=== PATIENT | male | born 1935 | race Caucasian/White ===

== ENCOUNTER → 2016-10-18 | Outpatient (CLI) | payer MEDICARE ==
[~2016-10-18] MED LIST: ACET-1757 PO; ACID1TAB3 PO; AMOX1TAB12 PO; AMOX1TAB64 PO; AMPI3VIA30 IV; ASPI-621 PO; ATOR20TA9 PO; CARV12.543 PO; CEFD300C2 PO; CEPH-376 PO; ESOM40VI IV; FURO-92 PO; ISOS30TA8 PO; LACT1POW9 PO; LEVO112T2 PO; LEVO500T33 PO; LEVO50CA2 PO; LEVO750P7 IV; LISI-167 PO; LORA-446 IVPush; LORA-446 PO; MECL12.5 PO; METO50TA82 PO; OXYB5TAB7 PO; OXYC5TAB3 PO; POTA10TA11 PO; POTA10TA12 PO; RIVA10TA PO; SENN-31 PO; SULF1TAB24 PO; TEMA15CA PO; TERA5CAP3 PO; TRIA15CR3 TD; VIT1TABL34 PO; WARF2.5T PO; WARF2.5T73 PO; WARF5TAB PO
== END | disposition home or self-care (01) ==
LOC: WOUND 10:00
PROVIDERS: ATTEND Podiatrist Foot & Ankle Surgery
DX: I87.313 Chronic venous hypertension (idiopathic) with ulcer of bilateral lower extremity (principal); L97.222 Non-pressure chronic ulcer of left calf with fat layer exposed; L97.212 Non-pressure chronic ulcer of right calf with fat layer exposed; I11.0 Hypertensive heart disease with heart failure; I50.9 Heart failure, unspecified; I25.2 Old myocardial infarction; I48.91 Unspecified atrial fibrillation; E78.5 Hyperlipidemia, unspecified; E03.9 Hypothyroidism, unspecified; I25.10 Atherosclerotic heart disease of native coronary artery without angina pectoris; Z72.89 Other problems related to lifestyle
CPT/HCPCS: 29581; 97597

== ENCOUNTER 2017-01-13 14:41 | Emergency (ER) | payer MEDICARE ==
[~2017-01-13] VITALS: Ht 180.3 cm; Wt 140.0 kg
[~2017-01-13 14:41] MED LIST changes: -CEFD300C2 PO; +CEFD300C37 PO
[2017-01-13] MEDS ORDERED: TAMS-11 PO (14:58)
[2017-01-13] MEDS ORDERED: SODIUM CHLORIDE 0.9% 1,000 ML IV ONE (15:07)
[2017-01-13] MEDS ORDERED: FAMOTIDINE 20 MG/2 ML IVP ONE (15:30)
[2017-01-13] MEDS ORDERED: MAALOX/HYOSCYAMINE/LIDOCAINE 45 ML BOTTLE PO ONE (15:30)
[2017-01-13] MEDS ORDERED: ONDANSETRON 2MG/ML, 2ML IVPush ONE (15:30)
[2017-01-13] MEDS ORDERED: FAMOTIDINE 20 MG/2 ML ONE (15:31)
[2017-01-13] MEDS ORDERED: ONDANSETRON 2MG/ML, 2ML ONE (15:31)
[2017-01-13] MEDS ORDERED: MAALOX/HYOSCYAMINE/LIDOCAINE 45 ML BOTTLE ONE (15:31)
[2017-01-13 16:17] LABS: ASPARTATE AMINO TRANSFERASE 26 U/L (15-37); BLOOD UREA NITROGEN 26 mg/dL (7-18)
[2017-01-13 16:56] LABS: PATH.CAST-FLAG NOT PRESENT; SPERM-FLAG NOT PRESENT; SRC-FLAG NOT PRESENT; XTAL-FLAG NOT PRESENT; YLC-FLAG NOT PRESENT
[2017-01-13 17:10] VITALS: BP 125/66
== END 2017-01-13 17:37 | disposition home or self-care (01) ==
LOC: ED 17:31
DX: R10.84 Generalized abdominal pain (principal); G89.29 Other chronic pain; E78.5 Hyperlipidemia, unspecified; N40.0 Benign prostatic hyperplasia without lower urinary tract symptoms; E03.9 Hypothyroidism, unspecified; I11.0 Hypertensive heart disease with heart failure
CPT/HCPCS: 36415; 74022; 80053; 81001; 83690; 85025; 85610; 93005; 96361; 96374; 96375; 99285; J2405; J7030; S0028

== ENCOUNTER 2017-02-27 02:07 | Inpatient (IN) | payer MEDICARE, OTHER ==
[~2017-02-27] VITALS: Ht 180.3 cm; Wt 142.3 kg
[~2017-02-27 02:07] MED LIST changes: +TAMS-11 PO
[2017-02-27] MEDS ORDERED: SODIUM CHLORIDE FLUSH 10ML SYR IVF ONE (03:00)
[2017-02-27] MEDS ORDERED: SODIUM CHLORIDE 0.9% 1,000ML IVBOLUS ONE (03:00)
[2017-02-27] MEDS ORDERED: CLINDAMYCIN PMX 900MG/50ML 50 ML IV ONE (03:00)
[2017-02-27] MEDS ORDERED: CLINDAMYCIN PMX 900MG/50ML 50 ML ONE (03:05)
[2017-02-27] MEDS ORDERED: ATOR10TA9 PO (03:23)
[2017-02-27] MEDS ORDERED: LISI-167 PO (03:23)
[2017-02-27] MEDS ORDERED: HYDR25TA11 PO (03:24)
[2017-02-27 03:32] LABS: BLOOD UREA NITROGEN 19 mg/dL (7-18)
[2017-02-27] MEDS ORDERED: FUROSEMIDE 40 MG/4 ML ONE (04:08)
[2017-02-27] MEDS ORDERED: HYDROcodone/APAP 5/325 TABLET ONE (04:17)
[2017-02-27] MEDS ORDERED: FUROSEMIDE 40 MG/4 ML IV ONE (04:30)
[2017-02-27] MEDS ORDERED: HYDROcodone/APAP 5/325 TABLET PO ONE (04:30)
[2017-02-27] MEDS ORDERED: METHOCARBAMOL 750 MG TABLET PO PRN (05:30)
[2017-02-27] MEDS ORDERED: ONDANSETRON 2MG/ML, 2ML IVPush PRN (05:30)
[2017-02-27] MEDS ORDERED: POLYETHYLENE GLYCOL 17 GM PACKET PO PRN (05:30)
[2017-02-27] MEDS ORDERED: DOCUSATE 100 MG CAPSULE PO PRN (05:30)
[2017-02-27] MEDS ORDERED: ACETAMINOPHEN 325 MG TABLET PO PRN (05:30)
[2017-02-27] MEDS ORDERED: BISACODYL 10 MG SUPP PR PRN (05:30)
[2017-02-27] MEDS ORDERED: morphine SULFATE 10 MG/ML, 1ML IVPush PRN (05:30)
[2017-02-27 07:16] VITALS: BP 119/73
[2017-02-27 08:22] VITALS: BP 156/87
[2017-02-27] MEDS: OXYcodone IR 5MG TABLET PO PRN ×3 (08:42→21:51)
[2017-02-27] MEDS: CEFTAROLINE 600 MG in SODIUM CHLORIDE 0.9% 100 ML IV SCH ×2 (08:53→21:37)
[2017-02-27] MEDS: TAMSULOSIN 0.4 MG CAP.ER.24H PO SCH (08:54)
[2017-02-27] MEDS: LEVOTHYROXINE 112 MCG TABLET PO SCH (08:54)
[2017-02-27] MEDS: METOPROLOL TARTRATE 50 MG TABLET PO SCH ×2 (08:54→18:23)
[2017-02-27] MEDS: POTASSIUM CHLORIDE 20 MEQ TAB.ER.PRT PO SCH ×2 (08:55→21:37)
[2017-02-27] MEDS: LISINOPRIL 10 MG TABLET PO SCH (08:55)
[2017-02-27] MEDS: RIVAROXABAN 20 MG TABLET PO SCH (08:56)
[2017-02-27] MEDS: FUROSEMIDE 40 MG TABLET PO SCH (08:56)
[2017-02-27] MEDS: SODIUM CHLORIDE FLUSH 10ML SYR IVF SCH ×2 (08:59→21:37)
[2017-02-27 15:37] VITALS: BP 132/71
[2017-02-27 19:14] VITALS: BP 116/76
[2017-02-27] MEDS: ATORVASTATIN 10 MG TABLET PO SCH (21:37)
[2017-02-28 02:35] VITALS: BP 110/71
[2017-02-28 05:34] LABS: ASPARTATE AMINO TRANSFERASE 21 U/L (15-37); BLOOD UREA NITROGEN 32 mg/dL (7-18)
[2017-02-28] MEDS: METOPROLOL TARTRATE 50 MG TABLET PO SCH ×2 (05:57→17:48)
[2017-02-28] MEDS: LEVOTHYROXINE 112 MCG TABLET PO SCH (05:58)
[2017-02-28] MEDS: OXYcodone IR 5MG TABLET PO PRN ×3 (05:58→17:45)
[2017-02-28 07:41] VITALS: BP 127/63
[2017-02-28] MEDS: TAMSULOSIN 0.4 MG CAP.ER.24H PO SCH (08:55)
[2017-02-28] MEDS: POTASSIUM CHLORIDE 20 MEQ TAB.ER.PRT PO SCH ×2 (08:55→22:34)
[2017-02-28] MEDS: RIVAROXABAN 20 MG TABLET PO SCH (08:55)
[2017-02-28] MEDS: LISINOPRIL 10 MG TABLET PO SCH (08:55)
[2017-02-28] MEDS: FUROSEMIDE 40 MG TABLET PO SCH (08:56)
[2017-02-28] MEDS: SODIUM CHLORIDE FLUSH 10ML SYR IVF SCH ×2 (08:58→22:34)
[2017-02-28] MEDS: CEFTAROLINE 600 MG in SODIUM CHLORIDE 0.9% 100 ML IV SCH ×2 (09:03→22:34)
[2017-02-28 12:54] VITALS: BP 108/72
[2017-02-28 20:48] VITALS: BP 156/85
[2017-02-28] MEDS: ATORVASTATIN 10 MG TABLET PO SCH (22:34)
[2017-03-01 01:55] VITALS: BP_SYST 164; BP_SYST 165; BP_DIAS 109; BP_DIAS 99
[2017-03-01 05:31] LABS: BLOOD UREA NITROGEN 36 mg/dL (7-18)
[2017-03-01] MEDS: METOPROLOL TARTRATE 50 MG TABLET PO SCH ×2 (05:41→17:20)
[2017-03-01] MEDS: LEVOTHYROXINE 112 MCG TABLET PO SCH (05:41)
[2017-03-01 07:26] VITALS: BP 133/70
[2017-03-01] MEDS: TAMSULOSIN 0.4 MG CAP.ER.24H PO SCH (09:11)
[2017-03-01] MEDS: LISINOPRIL 10 MG TABLET PO SCH (09:11)
[2017-03-01] MEDS: RIVAROXABAN 20 MG TABLET PO SCH (09:11)
[2017-03-01] MEDS: FUROSEMIDE 40 MG TABLET PO SCH (09:11)
[2017-03-01] MEDS: SODIUM CHLORIDE FLUSH 10ML SYR IVF SCH ×2 (09:11→20:52)
[2017-03-01] MEDS: OXYcodone IR 5MG TABLET PO PRN ×2 (09:11→17:20)
[2017-03-01] MEDS: CEFTAROLINE 600 MG in SODIUM CHLORIDE 0.9% 100 ML IV SCH ×2 (09:11→20:52)
[2017-03-01] MEDS: POTASSIUM CHLORIDE 20 MEQ TAB.ER.PRT PO SCH ×2 (09:11→20:52)
[2017-03-01 13:55] VITALS: BP 128/74
[2017-03-01] MEDS ORDERED: METH750T2 PO (15:12)
[2017-03-01] MEDS ORDERED: AMOX1TAB64 PO (15:12)
[2017-03-01 19:21] VITALS: BP_SYST 146; BP_SYST 175; BP_DIAS 74; BP_DIAS 95
[2017-03-01] MEDS: ATORVASTATIN 10 MG TABLET PO SCH (20:52)
[2017-03-02 01:08] VITALS: BP 136/77
[2017-03-02] MEDS: METOPROLOL TARTRATE 50 MG TABLET PO SCH ×2 (06:03→18:21)
[2017-03-02] MEDS: LEVOTHYROXINE 112 MCG TABLET PO SCH (06:03)
[2017-03-02 09:13] VITALS: BP 146/77
[2017-03-02] MEDS: FUROSEMIDE 40 MG TABLET PO SCH (09:37)
[2017-03-02] MEDS: SODIUM CHLORIDE FLUSH 10ML SYR IVF SCH ×2 (09:37→20:59)
[2017-03-02] MEDS: LISINOPRIL 10 MG TABLET PO SCH (09:37)
[2017-03-02] MEDS: CEFTAROLINE 600 MG in SODIUM CHLORIDE 0.9% 100 ML IV SCH ×2 (09:37→20:59)
[2017-03-02] MEDS: POTASSIUM CHLORIDE 20 MEQ TAB.ER.PRT PO SCH ×2 (09:38→20:59)
[2017-03-02] MEDS: RIVAROXABAN 20 MG TABLET PO SCH (09:38)
[2017-03-02] MEDS: TAMSULOSIN 0.4 MG CAP.ER.24H PO SCH (09:38)
[2017-03-02 14:30] VITALS: BP 138/70
[2017-03-02 19:13] VITALS: BP 134/72
[2017-03-02] MEDS: ATORVASTATIN 10 MG TABLET PO SCH (20:59)
[2017-03-03 02:18] VITALS: BP 165/97
[2017-03-03] MEDS: LEVOTHYROXINE 112 MCG TABLET PO SCH (06:27)
[2017-03-03] MEDS: METOPROLOL TARTRATE 50 MG TABLET PO SCH ×2 (06:27→18:20)
[2017-03-03 07:05] VITALS: BP 169/106
[2017-03-03 08:53] LABS: BLOOD UREA NITROGEN 41 mg/dL (7-18)
[2017-03-03 08:56] LABS: ASPARTATE AMINO TRANSFERASE 39 U/L (15-37)
[2017-03-03] MEDS: CEFTAROLINE 600 MG in SODIUM CHLORIDE 0.9% 100 ML IV SCH (09:00)
[2017-03-03] MEDS: SODIUM CHLORIDE FLUSH 10ML SYR IVF SCH ×2 (09:00→20:56)
[2017-03-03] MEDS: LISINOPRIL 10 MG TABLET PO SCH (10:04)
[2017-03-03] MEDS: FUROSEMIDE 40 MG TABLET PO SCH (10:04)
[2017-03-03] MEDS: POTASSIUM CHLORIDE 20 MEQ TAB.ER.PRT PO SCH ×2 (10:04→20:57)
[2017-03-03] MEDS: TAMSULOSIN 0.4 MG CAP.ER.24H PO SCH (10:04)
[2017-03-03] MEDS: RIVAROXABAN 20 MG TABLET PO SCH (10:05)
[2017-03-03] MEDS: AMOXICILLIN/CLAV 875-125MG TABLET PO SCH ×2 (11:14→20:56)
[2017-03-03 13:42] VITALS: BP 146/72
[2017-03-03 18:18] VITALS: BP 125/63
[2017-03-03] MEDS: ATORVASTATIN 10 MG TABLET PO SCH (20:56)
[2017-03-04 01:20] VITALS: BP_SYST 159; BP_SYST 186; BP_DIAS 82; BP_DIAS 92
[2017-03-04 05:30] LABS: ASPARTATE AMINO TRANSFERASE 50 U/L (15-37); BLOOD UREA NITROGEN 37 mg/dL (7-18)
[2017-03-04] MEDS: METOPROLOL TARTRATE 50 MG TABLET PO SCH (06:30)
[2017-03-04] MEDS: LEVOTHYROXINE 112 MCG TABLET PO SCH (06:30)
[2017-03-04 07:30] VITALS: BP 156/99
[2017-03-04] MEDS: RIVAROXABAN 20 MG TABLET PO SCH (10:17)
[2017-03-04] MEDS: TAMSULOSIN 0.4 MG CAP.ER.24H PO SCH (10:17)
[2017-03-04] MEDS: FUROSEMIDE 40 MG TABLET PO SCH (10:17)
[2017-03-04] MEDS: AMOXICILLIN/CLAV 875-125MG TABLET PO SCH (10:17)
[2017-03-04] MEDS: LISINOPRIL 10 MG TABLET PO SCH (10:17)
[2017-03-04] MEDS: POTASSIUM CHLORIDE 20 MEQ TAB.ER.PRT PO SCH (10:17)
[2017-03-04] MEDS: SODIUM CHLORIDE FLUSH 10ML SYR IVF SCH (10:18)
[2017-03-04] MEDS ORDERED: POTA10TA12 PO (12:44)
[2017-03-04 14:30] VITALS: BP 146/64
[2017-03-05] MEDS ORDERED: POTASSIUM CHLORIDE 20 MEQ TAB.ER.PRT PO SCH (09:00)
== END 2017-03-04 15:15 | DRG 291 ==
LOC: ED 03:16 → EDIP 04:01 → 3NE 06:23
PROVIDERS: ATTEND Family Medicine
PROC: 3E0U33Z Introduction of Anti-inflammatory into Joints, Percutaneous Approach (ICD-10-PCS; principal; 2017-03-01)
PROC: 3E0U3BZ Introduction of Anesthetic Agent into Joints, Percutaneous Approach (ICD-10-PCS; 2017-03-01)
DX: I11.0 Hypertensive heart disease with heart failure (principal); N17.0 Acute kidney failure with tubular necrosis; L03.116 Cellulitis of left lower limb; D68.69 Other thrombophilia; L03.115 Cellulitis of right lower limb; L03.119 Cellulitis of unspecified part of limb; E66.2 Morbid (severe) obesity with alveolar hypoventilation; Z68.42 Body mass index [BMI] 45.0-49.9, adult; M17.0 Bilateral primary osteoarthritis of knee; I50.20 Unspecified systolic (congestive) heart failure; M25.462 Effusion, left knee; M25.461 Effusion, right knee; E03.9 Hypothyroidism, unspecified; E78.5 Hyperlipidemia, unspecified; G89.29 Other chronic pain; I25.10 Atherosclerotic heart disease of native coronary artery without angina pectoris; I48.91 Unspecified atrial fibrillation; I87.8 Other specified disorders of veins; N40.0 Benign prostatic hyperplasia without lower urinary tract symptoms; D64.9 Anemia, unspecified; I44.7 Left bundle-branch block, unspecified; R21 Rash and other nonspecific skin eruption; R26.2 Difficulty in walking, not elsewhere classified; Z79.899 Other long term (current) drug therapy
CPT/HCPCS: 36415; 71010; 80048; 80053; 82040; 83880; 85025; 93005; 93970; 96374; J0712; J1940; J7030; Q0177

== ENCOUNTER 2017-03-29 05:56 | Emergency (ER) | payer MEDICARE, MEDICAID ==
[~2017-03-29] VITALS: Ht 180.3 cm; Wt 142.0 kg
[~2017-03-29 05:56] MED LIST changes: +ATOR10TA9 PO; +HYDR25TA11 PO; +METH750T2 PO
[2017-03-29 06:28] LABS: BLOOD UREA NITROGEN 27 mg/dL (7-18)
[2017-03-29] MEDS ORDERED: CEFDINIR 300 MG CAPSULE PO STA (07:47)
[2017-03-29 08:26] VITALS: BP 148/87
== END 2017-03-29 08:28 | disposition home or self-care (01) ==
LOC: ED 06:15
DX: N30.01 Acute cystitis with hematuria (principal); I10 Essential (primary) hypertension; E03.9 Hypothyroidism, unspecified; I48.91 Unspecified atrial fibrillation; I50.9 Heart failure, unspecified
CPT/HCPCS: 36415; 51702; 80048; 81001; 82040; 85025; 87077; 87086; 87186

== ENCOUNTER 2017-09-15 20:37 | Inpatient (IN) | payer MEDICARE, MEDICAID ==
[~2017-09-15] VITALS: Ht 180.3 cm; Wt 153.9 kg
[~2017-09-15 20:37] MED LIST changes: -LEVO500T33 PO; +LEVO500T47 PO
[2017-09-15] MEDS ORDERED: ALBUTEROL/IPRATROPIUM 2.5MG/0.5MG, 3 ML ONE (20:52)
[2017-09-15] MEDS ORDERED: ALBUTEROL/IPRATROPIUM 2.5MG/0.5MG, 3 ML NPPB ONE (21:00)
[2017-09-15] MEDS ORDERED: SODIUM CHLORIDE FLUSH 10ML SYR IVF ONE (21:00)
[2017-09-15] MEDS ORDERED: PLEASE ENTER HEIGHT AND WEIGHT MC SCH (21:00)
[2017-09-15] MEDS ORDERED: METF500T4 PO (21:06)
[2017-09-15 21:12] LABS: BASOPHILS # (AUTO) 0.04 x10^3/uL (0-0.1); BASOPHILS % (AUTO) 1 % (0-1); EOSINOPHILS # (AUTO) 0.29 x10^3/uL (0-0.4); EOSINOPHILS % (AUTO) 4 % (1-7); LYMPHOCYTES # (AUTO) 1.68 x10^3/uL (1-3.4); LYMPHOCYTES % (AUTO) 21 % (22-44); MD NO; MEAN CORPUSCULAR HEMOGLOBIN 28.7 pg (27.5-34.5); MEAN CORPUSCULAR HGB CONC 33.1 g/dL (33.2-36.2); MEAN CORPUSCULAR VOLUME 86.7 fL (81-97); MEAN PLATELET VOLUME 8.9 fL (7.4-10.4); MONOCYTES # (AUTO) 0.76 x10^3/uL (0.2-0.8); MONOCYTES % (AUTO) 9 % (2-9); NEUTROPHILS # (AUTO) 5.46 x10^3/uL (1.8-6.8); NEUTROPHILS % (AUTO) 66 % (42-75); PLATELET COUNT 276 x10^3/uL (130-400); RED BLOOD COUNT 4.63 x10^6/uL (4.38-5.82); RED CELL DISTRIBUTION WIDTH 16.2 % (9.4-14.8)
[2017-09-15 21:22] LABS: INTERNATIONAL NORMALIZED RATIO 1.33 (0.93-1.1); PROTHROMBIN TIME 13.8 Seconds (9.6-11.5)
[2017-09-15 21:23] LABS: ALBUMIN 3.3 g/dL (3.4-5.0); ANION GAP 8 mmol/L (5-15); CALCIUM 8.3 mg/dL (8.5-10.1); CHLORIDE 108 mmol/L (98-107)
[2017-09-15 21:29] LABS: ALANINE AMINOTRANSFERASE 24 U/L (12-78); ALKALINE PHOSPHATASE 126 U/L (45-117); BILIRUBIN,TOTAL 0.4 mg/dL (0.2-1.0); CREATININE 1.19 mg/dL (0.7-1.3); TOTAL PROTEIN 7.4 g/dL (6.4-8.2); TROPONIN I < 0.015 ng/mL (0.000-0.045)
[2017-09-15] MEDS ORDERED: methylPREDNISolone SOD SUCC 125 MG/2 ML ONE (22:26)
[2017-09-15] MEDS ORDERED: methylPREDNISolone SOD SUCC 125 MG/2 ML IVPush ONE (22:30)
[2017-09-15 22:56] LABS: RAPID INFLUENZA A Negative (Negative); RAPID INFLUENZA B Negative (Negative)
[2017-09-16] MEDS ORDERED: TEMAZEPAM 15 MG CAPSULE PO PRN
[2017-09-16] MEDS ORDERED: ONDANSETRON ODT 4 MG PO PRN
[2017-09-16] MEDS ORDERED: DOCUSATE 100 MG CAPSULE PO PRN
[2017-09-16] MEDS ORDERED: POLYETHYLENE GLYCOL 17 GM PACKET PO PRN
[2017-09-16] MEDS ORDERED: ONDANSETRON 2MG/ML, 2ML IVPush PRN
[2017-09-16] MEDS ORDERED: ACETAMINOPHEN 325 MG TABLET PO PRN
[2017-09-16] MEDS ORDERED: GUAIFENESIN/DM 200-20MG, 10ML UDC PO PRN
[2017-09-16 00:31] LABS: TROPONIN I < 0.015 ng/mL (0.000-0.045)
[2017-09-16 01:13] VITALS: BP 146/74
[2017-09-16] MEDS: OXYcodone IR 5MG TABLET PO PRN ×3 (01:55→20:39)
[2017-09-16 02:18] VITALS: BP 146/74
[2017-09-16] MEDS: LEVOTHYROXINE 112 MCG TABLET PO SCH (05:15)
[2017-09-16] MEDS: METOPROLOL TARTRATE 50 MG TABLET PO SCH ×2 (05:16→17:38)
[2017-09-16 06:06] LABS: BASOPHILS # (AUTO) 0.01 x10^3/uL (0-0.1); BASOPHILS % (AUTO) 0 % (0-1); EOSINOPHILS % (AUTO) 0 % (1-7); LYMPHOCYTES # (AUTO) 0.43 x10^3/uL (1-3.4); LYMPHOCYTES % (AUTO) 6 % (22-44); MD NO; MEAN CORPUSCULAR HEMOGLOBIN 28.9 pg (27.5-34.5); MEAN CORPUSCULAR HGB CONC 33.4 g/dL (33.2-36.2); MEAN CORPUSCULAR VOLUME 86.6 fL (81-97); MEAN PLATELET VOLUME 9.2 fL (7.4-10.4); MONOCYTES # (AUTO) 0.07 x10^3/uL (0.2-0.8); MONOCYTES % (AUTO) 1 % (2-9); NEUTROPHILS # (AUTO) 6.97 x10^3/uL (1.8-6.8); NEUTROPHILS % (AUTO) 93 % (42-75); PLATELET COUNT 251 x10^3/uL (130-400); RED BLOOD COUNT 4.57 x10^6/uL (4.38-5.82); RED CELL DISTRIBUTION WIDTH 15.6 % (9.4-14.8)
[2017-09-16 06:24] LABS: ALBUMIN 3.1 g/dL (3.4-5.0); ANION GAP 6 mmol/L (5-15); CALCIUM 8.4 mg/dL (8.5-10.1); CHLORIDE 107 mmol/L (98-107)
[2017-09-16 06:33] LABS: TROPONIN I < 0.015 ng/mL (0.000-0.045)
[2017-09-16 06:34] LABS: ALANINE AMINOTRANSFERASE 23 U/L (12-78); ALKALINE PHOSPHATASE 126 U/L (45-117); BILIRUBIN,TOTAL 0.5 mg/dL (0.2-1.0); CHOLESTEROL, TOTAL 98 mg/dL (140-239); CREATININE 1.26 mg/dL (0.7-1.3); HDL CHOL % 49 % (26-37); HDL CHOLESTEROL (DIRECT) 48 mg/dL (40-60); LDL CHOLESTEROL,CALCULATED 42 mg/dL (54-169); LDL/HDL RATIO 0.9 (0.5-3.0); TOTAL PROTEIN 7.2 g/dL (6.4-8.2); TRIGLYCERIDES 40 mg/dL (50-200); VLDL CHOLESTEROL 8 mg/dL (0-25)
[2017-09-16 06:40] LABS: HEMOGLOBIN A1C 7.4 % (4.2-6.3)
[2017-09-16] MEDS ORDERED: ALBUTEROL SULFATE 2.5 MG/3 ML NPPB SCH (07:00)
[2017-09-16 07:11] VITALS: BP 133/77
[2017-09-16] MEDS: FUROSEMIDE 40 MG/4 ML IV SCH (08:50)
[2017-09-16] MEDS: TAMSULOSIN 0.4 MG CAP.ER.24H PO SCH (08:51)
[2017-09-16] MEDS: POTASSIUM CHLORIDE 20 MEQ TAB.ER.PRT PO SCH (08:51)
[2017-09-16] MEDS: RIVAROXABAN 20 MG TABLET PO SCH (08:51)
[2017-09-16] MEDS ORDERED: methylPREDNISolone SOD SUCC 40 MG/ML IV SCH (09:00)
[2017-09-16] MEDS: INSULIN ASPART 100 UNITS/ML, PEN SQ-INSULIN SCH ×4 (09:05→21:01)
[2017-09-16 13:56] VITALS: BP 149/75
[2017-09-16 18:39] VITALS: BP 135/76
[2017-09-16] MEDS: ATORVASTATIN 10 MG TABLET PO SCH (20:39)
[2017-09-17 03:02] VITALS: BP 124/56
[2017-09-17] MEDS: ASPIRIN 81 MG TABLET CHEW PO SCH (06:34)
[2017-09-17] MEDS: METOPROLOL TARTRATE 50 MG TABLET PO SCH ×2 (06:34→17:03)
[2017-09-17] MEDS: LEVOTHYROXINE 112 MCG TABLET PO SCH (06:34)
[2017-09-17 08:04] VITALS: BP 125/69
[2017-09-17] MEDS: INSULIN ASPART 100 UNITS/ML, PEN SQ-INSULIN SCH ×4 (08:04→20:24)
[2017-09-17] MEDS: RIVAROXABAN 20 MG TABLET PO SCH (08:05)
[2017-09-17] MEDS: POTASSIUM CHLORIDE 20 MEQ TAB.ER.PRT PO SCH (08:05)
[2017-09-17] MEDS: TAMSULOSIN 0.4 MG CAP.ER.24H PO SCH (08:05)
[2017-09-17] MEDS: FUROSEMIDE 40 MG/4 ML IV SCH (08:05)
[2017-09-17 15:12] VITALS: BP 144/85
[2017-09-17] MEDS: OXYcodone IR 5MG TABLET PO PRN ×2 (17:03→21:20)
[2017-09-17 20:12] VITALS: BP 120/74
[2017-09-17] MEDS: ATORVASTATIN 10 MG TABLET PO SCH (20:23)
[2017-09-18 03:36] VITALS: BP 129/72
[2017-09-18] MEDS: METOPROLOL TARTRATE 50 MG TABLET PO SCH ×2 (06:11→17:27)
[2017-09-18] MEDS: LEVOTHYROXINE 112 MCG TABLET PO SCH (06:11)
[2017-09-18] MEDS: ASPIRIN 81 MG TABLET CHEW PO SCH (06:11)
[2017-09-18 06:13] LABS: ANION GAP 7 mmol/L (5-15); CALCIUM 8.3 mg/dL (8.5-10.1); CHLORIDE 105 mmol/L (98-107)
[2017-09-18 06:14] LABS: CREATININE 1.14 mg/dL (0.7-1.3)
[2017-09-18 06:35] VITALS: BP 115/71
[2017-09-18] MEDS: INSULIN ASPART 100 UNITS/ML, PEN SQ-INSULIN SCH ×3 (07:00→17:27)
[2017-09-18] MEDS: TAMSULOSIN 0.4 MG CAP.ER.24H PO SCH (09:43)
[2017-09-18] MEDS: RIVAROXABAN 20 MG TABLET PO SCH (09:43)
[2017-09-18] MEDS: FUROSEMIDE 40 MG/4 ML IV SCH (09:43)
[2017-09-18] MEDS: POTASSIUM CHLORIDE 20 MEQ TAB.ER.PRT PO SCH (09:43)
[2017-09-18] MEDS: OXYcodone IR 5MG TABLET PO PRN ×2 (09:52→14:50)
[2017-09-18 12:30] VITALS: BP 130/80
[2017-09-18] MEDS ORDERED: PRED10TA PO (14:33)
== END 2017-09-18 17:29 | DRG 291 ==
LOC: ED 22:07 → EDIP 23:19 → 5SO 09-16 01:09
PROVIDERS: ADMIT Internal Medicine; ATTEND Internal Medicine
DX: I13.0 Hypertensive heart and chronic kidney disease with heart failure and stage 1 through stage 4 chronic kidney disease, or unspecified chronic kidney disease (principal); I50.31 Acute diastolic (congestive) heart failure; J96.21 Acute and chronic respiratory failure with hypoxia; D68.69 Other thrombophilia; I27.20 Pulmonary hypertension, unspecified; E66.01 Morbid (severe) obesity due to excess calories; I48.2 Chronic atrial fibrillation; N18.3 Chronic kidney disease, stage 3 (moderate); Z68.42 Body mass index [BMI] 45.0-49.9, adult; I25.10 Atherosclerotic heart disease of native coronary artery without angina pectoris; E11.9 Type 2 diabetes mellitus without complications; Z79.01 Long term (current) use of anticoagulants; E03.9 Hypothyroidism, unspecified; E78.5 Hyperlipidemia, unspecified; G47.33 Obstructive sleep apnea (adult) (pediatric); I44.7 Left bundle-branch block, unspecified; I87.8 Other specified disorders of veins; J98.01 Acute bronchospasm; M17.0 Bilateral primary osteoarthritis of knee; N40.0 Benign prostatic hyperplasia without lower urinary tract symptoms; Z91.19 Patient's noncompliance with other medical treatment and regimen; J40 Bronchitis, not specified as acute or chronic
CPT/HCPCS: 36415; 70498; 71045; 80048; 80053; 80061; 82962; 83036; 83735; 83880; 84100; 84443; 84484; 85025; 85379; 85610; 85730; 87400; 93005; 93970; 94640; 96374; C8929; J1815; J1940; J7613; J7620; Q9967; J2920; J2930; J7512

== ENCOUNTER 2018-04-01 12:23 | Inpatient (IN) | payer MEDICARE, MEDICAID ==
[~2018-04-01] VITALS: Ht 177.8 cm; Wt 145.8 kg
[~2018-04-01 12:23] MED LIST changes: +LEVO750T26 PO; +METF500T5 PO; +PRED10TA PO
[2018-04-01] MEDS ORDERED: AMPICILLIN/SULBACTAM 3 GM in SODIUM CHLORIDE 0.9% 100 ML IVPB ONE (13:30)
[2018-04-01] MEDS ORDERED: SODIUM CHLORIDE FLUSH 10ML SYR IVF ONE (13:30)
[2018-04-01] MEDS ORDERED: VANCOMYCIN 2,000 MG in SODIUM CHLORIDE 0.9% 500 ML IV ONE (13:30)
[2018-04-01] MEDS ORDERED: VANCOMYCIN PER PHARMACY MC ONE (13:30)
[2018-04-01 13:50] LABS: BASOPHILS # (AUTO) 0.03 x10^3/uL (0-0.1); BASOPHILS % (AUTO) 0 % (0-1); EOSINOPHILS # (AUTO) 0.16 x10^3/uL (0-0.4); EOSINOPHILS % (AUTO) 2 % (1-7); LYMPHOCYTES % (AUTO) 14 % (22-44); MD NO; MEAN CORPUSCULAR HEMOGLOBIN 28.6 pg (27.5-34.5); MEAN CORPUSCULAR HGB CONC 33.5 g/dL (33.2-36.2); MEAN CORPUSCULAR VOLUME 85.3 fL (81-97); MEAN PLATELET VOLUME 8.8 fL (7.4-10.4); MONOCYTES # (AUTO) 0.94 x10^3/uL (0.2-0.8); MONOCYTES % (AUTO) 11 % (2-9); NEUTROPHILS # (AUTO) 6.01 x10^3/uL (1.8-6.8); NEUTROPHILS % (AUTO) 72 % (42-75); PLATELET COUNT 283 x10^3/uL (130-400); RED BLOOD COUNT 4.88 x10^6/uL (4.38-5.82); RED CELL DISTRIBUTION WIDTH 16.8 % (9.4-14.8)
[2018-04-01 13:59] LABS: ANION GAP 8 mmol/L (5-15); CALCIUM 8.8 mg/dL (8.5-10.1); CHLORIDE 103 mmol/L (98-107); CREATININE 1.32 mg/dL (0.7-1.3)
[2018-04-01 14:00] LABS: ALBUMIN 2.9 g/dL (3.4-5.0)
[2018-04-01] MEDS ORDERED: TAMS0.4C2 PO (14:36)
[2018-04-01] MEDS ORDERED: LEVO112T4 PO (14:36)
[2018-04-01] MEDS ORDERED: METF500T5 PO (14:36)
[2018-04-01] MEDS ORDERED: METO-99 PO (14:36)
[2018-04-01] MEDS ORDERED: POTA20TA14 PO (14:36)
[2018-04-01] MEDS ORDERED: VIT1TABL34 PO (14:36)
[2018-04-01] MEDS ORDERED: RIVA20TA PO (14:36)
[2018-04-01 15:26] VITALS: BP 136/80
[2018-04-01 15:45] LABS: HEMOGLOBIN A1C 6.4 % (4.2-6.3)
[2018-04-01] MEDS ORDERED: ONDANSETRON 2MG/ML, 2ML IVPush PRN (16:00)
[2018-04-01] MEDS ORDERED: FUROSEMIDE 20 MG/2 ML IV ONE (16:00)
[2018-04-01 16:22] LABS: HCT (SEDRATE) 41.6 % (39.2-51.8)
[2018-04-01] MEDS: POTASSIUM CHLORIDE 10 MEQ TABLET.ER PO SCH (17:13)
[2018-04-01] MEDS: metFORMIN 500 MG TABLET PO SCH (17:13)
[2018-04-01 17:14] LABS: CULTURE INDICATED? YES; MICROSCOPIC INDICATED
[2018-04-01] MEDS ORDERED: CEFAZOLIN 1,000 MG IM SCH (20:00)
[2018-04-01 20:49] VITALS: BP 144/87
[2018-04-01] MEDS: TAMSULOSIN 0.4 MG CAP.ER.24H PO SCH (21:15)
[2018-04-01] MEDS: ACETAMINOPHEN 325 MG TABLET PO PRN (21:15)
[2018-04-01] MEDS: ATORVASTATIN 10 MG TABLET PO SCH (21:15)
[2018-04-01] MEDS: METOPROLOL TARTRATE 100 MG TABLET PO SCH (21:15)
[2018-04-01] MEDS: RIVAROXABAN 20 MG TABLET PO SCH (21:18)
[2018-04-01] MEDS: CEFAZOLIN PMX 1GM/50ML 50 ML IV SCH (21:37)
[2018-04-02 01:19] VITALS: BP 123/77
[2018-04-02 05:46] LABS: BASOPHILS # (AUTO) 0.03 x10^3/uL (0-0.1); BASOPHILS % (AUTO) 0 % (0-1); EOSINOPHILS # (AUTO) 0.22 x10^3/uL (0-0.4); EOSINOPHILS % (AUTO) 3 % (1-7); LYMPHOCYTES # (AUTO) 0.89 x10^3/uL (1-3.4); LYMPHOCYTES % (AUTO) 12 % (22-44); MD NO; MEAN CORPUSCULAR HEMOGLOBIN 28.4 pg (27.5-34.5); MEAN CORPUSCULAR HGB CONC 33.3 g/dL (33.2-36.2); MEAN CORPUSCULAR VOLUME 85.2 fL (81-97); MEAN PLATELET VOLUME 8.8 fL (7.4-10.4); MONOCYTES # (AUTO) 0.73 x10^3/uL (0.2-0.8); MONOCYTES % (AUTO) 10 % (2-9); NEUTROPHILS # (AUTO) 5.77 x10^3/uL (1.8-6.8); NEUTROPHILS % (AUTO) 76 % (42-75); PLATELET COUNT 272 x10^3/uL (130-400); RED BLOOD COUNT 4.69 x10^6/uL (4.38-5.82); RED CELL DISTRIBUTION WIDTH 17.1 % (9.4-14.8)
[2018-04-02] MEDS: CEFAZOLIN PMX 1GM/50ML 50 ML IV SCH ×3 (06:06→21:56)
[2018-04-02 06:18] LABS: ALBUMIN 2.7 g/dL (3.4-5.0); ANION GAP 9 mmol/L (5-15); CALCIUM 8.5 mg/dL (8.5-10.1); CHLORIDE 104 mmol/L (98-107)
[2018-04-02 06:20] LABS: CREATININE 1.23 mg/dL (0.7-1.3)
[2018-04-02] MEDS: ACETAMINOPHEN 325 MG TABLET PO PRN (06:57)
[2018-04-02 08:00] VITALS: BP 122/65
[2018-04-02] MEDS ORDERED: VANCOMYCIN PER PHARMACY MC PRN (08:00)
[2018-04-02] MEDS: POTASSIUM CHLORIDE 10 MEQ TABLET.ER PO SCH ×2 (08:01→17:05)
[2018-04-02] MEDS: MULTIVITAMIN 1 TABLET PO SCH (08:02)
[2018-04-02] MEDS: FUROSEMIDE 40 MG/4 ML IV SCH (08:02)
[2018-04-02] MEDS: LEVOTHYROXINE 112 MCG TABLET PO SCH (08:02)
[2018-04-02] MEDS: METOPROLOL TARTRATE 100 MG TABLET PO SCH ×2 (08:02→20:31)
[2018-04-02] MEDS ORDERED: PHARMACOKINETIC MONITORING MC PRN (08:30)
[2018-04-02] MEDS ORDERED: PHARMACOKINETIC CONSULTATION MC ONE (08:30)
[2018-04-02] MEDS: OXYcodone IR 5MG TABLET PO PRN ×2 (10:00→19:16)
[2018-04-02] MEDS ORDERED: VANCOMYCIN 2,500 MG in SODIUM CHLORIDE 0.9% 500 ML IV ONE (10:00)
[2018-04-02 12:44] VITALS: BP 105/63
[2018-04-02] MEDS: metFORMIN 500 MG TABLET PO SCH (17:05)
[2018-04-02 19:49] VITALS: BP 113/78
[2018-04-02] MEDS: ATORVASTATIN 10 MG TABLET PO SCH (20:31)
[2018-04-02] MEDS: RIVAROXABAN 20 MG TABLET PO SCH (20:31)
[2018-04-02] MEDS: TAMSULOSIN 0.4 MG CAP.ER.24H PO SCH (20:31)
[2018-04-03 02:25] VITALS: BP 116/62
[2018-04-03] MEDS: CEFAZOLIN PMX 1GM/50ML 50 ML IV SCH ×3 (05:36→21:54)
[2018-04-03] MEDS: OXYcodone IR 5MG TABLET PO PRN ×3 (06:17→21:52)
[2018-04-03 07:17] VITALS: BP 114/70
[2018-04-03] MEDS: LEVOTHYROXINE 112 MCG TABLET PO SCH (09:48)
[2018-04-03] MEDS: MULTIVITAMIN 1 TABLET PO SCH (09:48)
[2018-04-03] MEDS: METOPROLOL TARTRATE 100 MG TABLET PO SCH ×2 (09:48→21:52)
[2018-04-03] MEDS: FUROSEMIDE 40 MG/4 ML IV SCH (09:48)
[2018-04-03] MEDS: POTASSIUM CHLORIDE 10 MEQ TABLET.ER PO SCH ×2 (09:49→17:57)
[2018-04-03] MEDS: VANCOMYCIN 2,000 MG in SODIUM CHLORIDE 0.9% 500 ML IV SCH (10:26)
[2018-04-03 13:45] VITALS: BP 101/64
[2018-04-03] MEDS: metFORMIN 500 MG TABLET PO SCH (17:57)
[2018-04-03 21:22] VITALS: BP 121/76
[2018-04-03] MEDS: RIVAROXABAN 20 MG TABLET PO SCH (21:52)
[2018-04-03] MEDS: ATORVASTATIN 10 MG TABLET PO SCH (21:52)
[2018-04-03] MEDS: TAMSULOSIN 0.4 MG CAP.ER.24H PO SCH (21:52)
[2018-04-04 04:53] VITALS: BP 148/98
[2018-04-04 05:13] VITALS: BP 124/67
[2018-04-04 06:16] LABS: ANION GAP 7 mmol/L (5-15); CALCIUM 8.4 mg/dL (8.5-10.1); CHLORIDE 107 mmol/L (98-107)
[2018-04-04 06:17] LABS: CREATININE 1.09 mg/dL (0.7-1.3)
[2018-04-04] MEDS: CEFAZOLIN PMX 1GM/50ML 50 ML IV SCH ×3 (06:17→15:13)
[2018-04-04 07:32] VITALS: BP 111/63
[2018-04-04] MEDS: POTASSIUM CHLORIDE 10 MEQ TABLET.ER PO SCH ×2 (08:06→17:59)
[2018-04-04] MEDS: METOPROLOL TARTRATE 100 MG TABLET PO SCH ×2 (08:06→20:36)
[2018-04-04] MEDS: MULTIVITAMIN 1 TABLET PO SCH (08:06)
[2018-04-04] MEDS: FUROSEMIDE 40 MG TABLET PO SCH (08:06)
[2018-04-04] MEDS: LEVOTHYROXINE 112 MCG TABLET PO SCH (08:06)
[2018-04-04] MEDS: VANCOMYCIN 2,000 MG in SODIUM CHLORIDE 0.9% 500 ML IV SCH (11:43)
[2018-04-04 12:45] VITALS: BP 110/66
[2018-04-04] MEDS: OXYcodone IR 5MG TABLET PO PRN (17:58)
[2018-04-04] MEDS: metFORMIN 500 MG TABLET PO SCH (17:59)
[2018-04-04 19:33] VITALS: BP 112/67
[2018-04-04] MEDS: RIVAROXABAN 20 MG TABLET PO SCH (20:36)
[2018-04-04] MEDS: ATORVASTATIN 10 MG TABLET PO SCH (20:36)
[2018-04-04] MEDS: TAMSULOSIN 0.4 MG CAP.ER.24H PO SCH (20:36)
[2018-04-04] MEDS: AMPICILLIN/SULBACTAM 3 GM in SODIUM CHLORIDE 0.9% 100 ML IV SCH (22:10)
[2018-04-04 23:51] LABS: CLOSTRIDIUM DIFFICILE ANTIGEN NEGATIVE; CLOSTRIDIUM DIFFICILE TOXIN NEGATIVE (Negative)
[2018-04-05 01:48] VITALS: BP 140/82
[2018-04-05] MEDS: AMPICILLIN/SULBACTAM 3 GM in SODIUM CHLORIDE 0.9% 100 ML IV SCH ×4 (05:04→22:37)
[2018-04-05 07:50] VITALS: BP 158/84
[2018-04-05] MEDS: METOPROLOL TARTRATE 100 MG TABLET PO SCH ×2 (08:15→20:43)
[2018-04-05] MEDS: FUROSEMIDE 40 MG TABLET PO SCH (08:15)
[2018-04-05] MEDS: LEVOTHYROXINE 112 MCG TABLET PO SCH (08:15)
[2018-04-05] MEDS: POTASSIUM CHLORIDE 10 MEQ TABLET.ER PO SCH ×2 (08:18→17:16)
[2018-04-05] MEDS: MULTIVITAMIN 1 TABLET PO SCH (08:18)
[2018-04-05] MEDS: OXYcodone IR 5MG TABLET PO PRN ×2 (08:40→17:16)
[2018-04-05] MEDS: LOPERAMIDE 1 MG/5 ML, 10ML UDC PO SCH (13:56)
[2018-04-05 14:24] VITALS: BP 125/83
[2018-04-05] MEDS: metFORMIN 500 MG TABLET PO SCH (17:16)
[2018-04-05 19:24] VITALS: BP 140/82
[2018-04-05] MEDS: RIVAROXABAN 20 MG TABLET PO SCH (20:42)
[2018-04-05] MEDS: TAMSULOSIN 0.4 MG CAP.ER.24H PO SCH (20:42)
[2018-04-05] MEDS: ATORVASTATIN 10 MG TABLET PO SCH (20:43)
[2018-04-06 01:47] VITALS: BP 141/83
[2018-04-06] MEDS: AMPICILLIN/SULBACTAM 3 GM in SODIUM CHLORIDE 0.9% 100 ML IV SCH ×4 (04:57→21:36)
[2018-04-06 05:24] LABS: CALCIUM 8.6 mg/dL (8.5-10.1); CHLORIDE 109 mmol/L (98-107)
[2018-04-06 05:28] LABS: ALBUMIN 2.8 g/dL (3.4-5.0); ANION GAP 7 mmol/L (5-15)
[2018-04-06 07:59] VITALS: BP 142/83
[2018-04-06] MEDS: MULTIVITAMIN 1 TABLET PO SCH (08:15)
[2018-04-06] MEDS: METOPROLOL TARTRATE 100 MG TABLET PO SCH ×2 (08:15→21:36)
[2018-04-06] MEDS: POTASSIUM CHLORIDE 10 MEQ TABLET.ER PO SCH ×2 (08:15→17:05)
[2018-04-06] MEDS: LEVOTHYROXINE 112 MCG TABLET PO SCH (08:15)
[2018-04-06] MEDS: FUROSEMIDE 40 MG TABLET PO SCH (08:16)
[2018-04-06] MEDS: LOPERAMIDE 1 MG/5 ML, 10ML UDC PO SCH (08:17)
[2018-04-06 15:52] VITALS: BP 114/80
[2018-04-06] MEDS: metFORMIN 500 MG TABLET PO SCH (17:05)
[2018-04-06 18:37] VITALS: BP_SYST 106; BP_SYST 142; BP_DIAS 63; BP_DIAS 87
[2018-04-06] MEDS: ATORVASTATIN 10 MG TABLET PO SCH (21:36)
[2018-04-06] MEDS: TAMSULOSIN 0.4 MG CAP.ER.24H PO SCH (21:36)
[2018-04-06] MEDS: RIVAROXABAN 20 MG TABLET PO SCH (21:36)
[2018-04-07] MEDS: OXYcodone IR 5MG TABLET PO PRN ×2 (01:16→22:35)
[2018-04-07 02:08] VITALS: BP 105/67
[2018-04-07] MEDS: AMPICILLIN/SULBACTAM 3 GM in SODIUM CHLORIDE 0.9% 100 ML IV SCH ×4 (04:37→22:29)
[2018-04-07 05:31] LABS: BASOPHILS # (AUTO) 0.03 x10^3/uL (0-0.1); BASOPHILS % (AUTO) 0 % (0-1); EOSINOPHILS # (AUTO) 0.41 x10^3/uL (0-0.4); EOSINOPHILS % (AUTO) 5 % (1-7); LYMPHOCYTES # (AUTO) 1.44 x10^3/uL (1-3.4); LYMPHOCYTES % (AUTO) 19 % (22-44); MD NO; MEAN CORPUSCULAR HEMOGLOBIN 28.4 pg (27.5-34.5); MEAN CORPUSCULAR VOLUME 85.9 fL (81-97); MEAN PLATELET VOLUME 8.4 fL (7.4-10.4); MONOCYTES # (AUTO) 0.73 x10^3/uL (0.2-0.8); MONOCYTES % (AUTO) 10 % (2-9); NEUTROPHILS # (AUTO) 5.05 x10^3/uL (1.8-6.8); NEUTROPHILS % (AUTO) 66 % (42-75); PLATELET COUNT 314 x10^3/uL (130-400); RED BLOOD COUNT 4.51 x10^6/uL (4.38-5.82); RED CELL DISTRIBUTION WIDTH 16.8 % (9.4-14.8)
[2018-04-07 05:46] LABS: CHLORIDE 107 mmol/L (98-107)
[2018-04-07 05:58] LABS: ALANINE AMINOTRANSFERASE 16 U/L (12-78); ALBUMIN 2.8 g/dL (3.4-5.0); ALKALINE PHOSPHATASE 88 U/L (45-117); ANION GAP 6 mmol/L (5-15); BILIRUBIN,TOTAL 0.6 mg/dL (0.2-1.0); CALCIUM 8.5 mg/dL (8.5-10.1); CREATININE 1.01 mg/dL (0.7-1.3); TOTAL PROTEIN 6.7 g/dL (6.4-8.2)
[2018-04-07 07:50] VITALS: BP 165/74
[2018-04-07] MEDS: LEVOTHYROXINE 112 MCG TABLET PO SCH (08:48)
[2018-04-07] MEDS: MULTIVITAMIN 1 TABLET PO SCH (08:48)
[2018-04-07] MEDS: POTASSIUM CHLORIDE 10 MEQ TABLET.ER PO SCH ×2 (08:49→16:57)
[2018-04-07] MEDS: FUROSEMIDE 40 MG TABLET PO SCH (08:49)
[2018-04-07] MEDS: METOPROLOL TARTRATE 100 MG TABLET PO SCH ×2 (08:49→20:33)
[2018-04-07] MEDS: LOPERAMIDE 1 MG/5 ML, 10ML UDC PO SCH (08:50)
[2018-04-07 13:17] VITALS: BP 150/93
[2018-04-07] MEDS ORDERED: LIDOCAINE-MPF 2%, 2ML ONE (15:37)
[2018-04-07] MEDS: metFORMIN 500 MG TABLET PO SCH (16:57)
[2018-04-07 20:19] VITALS: BP 118/85
[2018-04-07] MEDS: ATORVASTATIN 10 MG TABLET PO SCH (20:33)
[2018-04-07] MEDS: TAMSULOSIN 0.4 MG CAP.ER.24H PO SCH (20:33)
[2018-04-07] MEDS: RIVAROXABAN 20 MG TABLET PO SCH (20:33)
[2018-04-08 01:09] VITALS: BP 135/86
[2018-04-08] MEDS: AMPICILLIN/SULBACTAM 3 GM in SODIUM CHLORIDE 0.9% 100 ML IV SCH ×4 (04:43→22:54)
[2018-04-08 07:14] VITALS: BP 112/80
[2018-04-08] MEDS: FUROSEMIDE 40 MG TABLET PO SCH (08:04)
[2018-04-08] MEDS: METOPROLOL TARTRATE 100 MG TABLET PO SCH ×2 (08:04→21:00)
[2018-04-08] MEDS: POTASSIUM CHLORIDE 10 MEQ TABLET.ER PO SCH ×2 (08:04→16:45)
[2018-04-08] MEDS: MULTIVITAMIN 1 TABLET PO SCH (08:04)
[2018-04-08] MEDS: LOPERAMIDE 1 MG/5 ML, 10ML UDC PO SCH (08:04)
[2018-04-08] MEDS: LEVOTHYROXINE 112 MCG TABLET PO SCH (08:05)
[2018-04-08 10:55] LABS: INTERNATIONAL NORMALIZED RATIO 1.24 (0.93-1.1); PROTHROMBIN TIME 12.7 Seconds (9.6-11.5)
[2018-04-08 12:51] VITALS: BP 123/79
[2018-04-08] MEDS: metFORMIN 500 MG TABLET PO SCH (16:45)
[2018-04-08 19:14] VITALS: BP 121/87
[2018-04-08] MEDS ORDERED: ONDANSETRON 2MG/ML, 2ML ONE (19:40)
[2018-04-08] MEDS ORDERED: PROPOFOL 10 MG/ML, 20ML ONE (19:40)
[2018-04-08] MEDS ORDERED: BUPIVACAINE/PF-EPI 0.5% 1:200K IM ONE (19:56)
[2018-04-08] MEDS ORDERED: FENTANYL PF 100 MCG/2ML IV PRN (20:00)
[2018-04-08] MEDS ORDERED: HYDROmorphone 1 MG/ML, 1ML IV PRN (20:00)
[2018-04-08] MEDS ORDERED: MEPERIDINE/PF 25MG/0.5ML IVPush PRN (20:00)
[2018-04-08] MEDS ORDERED: hydrALAzine 20 MG/ML, 1ML IV PRN (20:00)
[2018-04-08] MEDS ORDERED: PROMETHAZINE 25 MG/ML, 1ML IV PRN (20:00)
[2018-04-08] MEDS ORDERED: ACETAMINOPHEN 325 MG TABLET PO PRN (20:00)
[2018-04-08] MEDS ORDERED: OXYcodone 5 MG/5 ML ORAL.SOL UDC PO PRN (20:00)
[2018-04-08] MEDS ORDERED: HALOPERIDOL 5 MG/ML IV PRN (20:00)
[2018-04-08] MEDS ORDERED: LABETALOL 5MG/ML, 20ML IV PRN (20:00)
[2018-04-08] MEDS ORDERED: OXYcodone 5 MG/5 ML ORAL.SOL UDC ONE (20:26)
[2018-04-08] MEDS ORDERED: FENTANYL PF 100 MCG/2ML ONE (20:26)
[2018-04-08] MEDS: TAMSULOSIN 0.4 MG CAP.ER.24H PO SCH (21:36)
[2018-04-08] MEDS: ATORVASTATIN 10 MG TABLET PO SCH (21:37)
[2018-04-09 01:35] VITALS: BP 115/77
[2018-04-09] MEDS: AMPICILLIN/SULBACTAM 3 GM in SODIUM CHLORIDE 0.9% 100 ML IV SCH ×2 (04:31→10:54)
[2018-04-09 04:53] LABS: BASOPHILS # (AUTO) 0.07 x10^3/uL (0-0.1); BASOPHILS % (AUTO) 1 % (0-1); EOSINOPHILS # (AUTO) 0.27 x10^3/uL (0-0.4); EOSINOPHILS % (AUTO) 4 % (1-7); LYMPHOCYTES % (AUTO) 20 % (22-44); MD NO; MEAN CORPUSCULAR HEMOGLOBIN 28.1 pg (27.5-34.5); MEAN CORPUSCULAR HGB CONC 32.6 g/dL (33.2-36.2); MEAN CORPUSCULAR VOLUME 86.2 fL (81-97); MEAN PLATELET VOLUME 8.3 fL (7.4-10.4); MONOCYTES # (AUTO) 0.77 x10^3/uL (0.2-0.8); MONOCYTES % (AUTO) 10 % (2-9); NEUTROPHILS % (AUTO) 65 % (42-75); PLATELET COUNT 347 x10^3/uL (130-400); RED CELL DISTRIBUTION WIDTH 16.8 % (9.4-14.8)
[2018-04-09 05:01] LABS: CHLORIDE 107 mmol/L (98-107)
[2018-04-09 05:08] LABS: ANION GAP 6 mmol/L (5-15); CALCIUM 8.5 mg/dL (8.5-10.1); CREATININE 1.22 mg/dL (0.7-1.3)
[2018-04-09 07:00] VITALS: BP 127/84
[2018-04-09] MEDS: POTASSIUM CHLORIDE 10 MEQ TABLET.ER PO SCH (08:24)
[2018-04-09] MEDS: FUROSEMIDE 40 MG TABLET PO SCH (08:24)
[2018-04-09] MEDS: MULTIVITAMIN 1 TABLET PO SCH (08:24)
[2018-04-09] MEDS: LEVOTHYROXINE 112 MCG TABLET PO SCH (08:24)
[2018-04-09] MEDS: LOPERAMIDE 1 MG/5 ML, 10ML UDC PO SCH (08:25)
[2018-04-09] MEDS: METOPROLOL TARTRATE 100 MG TABLET PO SCH (08:25)
[2018-04-09] MEDS: OXYcodone IR 5MG TABLET PO PRN (08:31)
[2018-04-09] MEDS ORDERED: POTA20TA89 PO (10:55)
[2018-04-09] MEDS ORDERED: FURO40TA6 PO (10:55)
[2018-04-09] MEDS ORDERED: AMPI3VIA IV (10:55)
[2018-04-09] MEDS ORDERED: ACET325T14 PO (10:56)
[2018-04-09] MEDS ORDERED: ASPI-496 PO (11:14)
[2018-04-09 12:12] VITALS: BP 141/82
== END 2018-04-09 16:21 | DRG 871 ==
LOC: ED 14:09 → EDIP 14:10 → ED 14:16 → 3NE 15:16
PROVIDERS: ADMIT Internal Medicine; ATTEND Internal Medicine
PROC: 02HV33Z Insertion of Infusion Device into Superior Vena Cava, Percutaneous Approach (ICD-10-PCS; 2018-04-07)
PROC: B5181ZA Fluoroscopy of Superior Vena Cava using Low Osmolar Contrast, Guidance (ICD-10-PCS; 2018-04-07)
PROC: B548ZZA Ultrasonography of Superior Vena Cava, Guidance (ICD-10-PCS; 2018-04-07)
PROC: 0Y993ZZ Drainage of Right Lower Extremity, Percutaneous Approach (ICD-10-PCS; principal; 2018-04-08 20:00)
DX: A41.81 Sepsis due to Enterococcus (principal); E43 Unspecified severe protein-calorie malnutrition; L03.116 Cellulitis of left lower limb; I13.0 Hypertensive heart and chronic kidney disease with heart failure and stage 1 through stage 4 chronic kidney disease, or unspecified chronic kidney disease; L03.115 Cellulitis of right lower limb; D68.69 Other thrombophilia; I50.30 Unspecified diastolic (congestive) heart failure; L97.919 Non-pressure chronic ulcer of unspecified part of right lower leg with unspecified severity; L97.929 Non-pressure chronic ulcer of unspecified part of left lower leg with unspecified severity; N17.9 Acute kidney failure, unspecified; N39.0 Urinary tract infection, site not specified; N18.3 Chronic kidney disease, stage 3 (moderate); Z79.01 Long term (current) use of anticoagulants; E66.01 Morbid (severe) obesity due to excess calories; Z71.3 Dietary counseling and surveillance; S80.11XA Contusion of right lower leg, initial encounter; B95.2 Enterococcus as the cause of diseases classified elsewhere; B95.8 Unspecified staphylococcus as the cause of diseases classified elsewhere; E03.9 Hypothyroidism, unspecified; E11.22 Type 2 diabetes mellitus with diabetic chronic kidney disease; E11.622 Type 2 diabetes mellitus with other skin ulcer; G47.33 Obstructive sleep apnea (adult) (pediatric); G89.29 Other chronic pain; I07.1 Rheumatic tricuspid insufficiency; I25.10 Atherosclerotic heart disease of native coronary artery without angina pectoris; I25.2 Old myocardial infarction; I48.2 Chronic atrial fibrillation; I83.009 Varicose veins of unspecified lower extremity with ulcer of unspecified site; I87.2 Venous insufficiency (chronic) (peripheral); K52.9 Noninfective gastroenteritis and colitis, unspecified; M54.9 Dorsalgia, unspecified; N40.0 Benign prostatic hyperplasia without lower urinary tract symptoms; W18.30XA Fall on same level, unspecified, initial encounter; Y93.89 Activity, other specified; Y92.89 Other specified places as the place of occurrence of the external cause; Y99.2 Volunteer activity; Z87.891 Personal history of nicotine dependence; Z82.49 Family history of ischemic heart disease and other diseases of the circulatory system; Z82.5 Family history of asthma and other chronic lower respiratory diseases; Z91.19 Patient's noncompliance with other medical treatment and regimen
CPT/HCPCS: 36415; 36569; 76937; 77001; 80048; 80053; 80069; 81001; 82040; 82962; 83036; 83605; 83735; 84100; 85025; 85610; 85651; 86140; 87040; 87070; 87075; 87077; 87086; 87186; 87205; 87324; 93005; 93922; 99285; J0171; J0295; J0690; J1940; J2250; J2405; J2704; J3010; J3370; J3490; C1751; J7040; Q0177

== ENCOUNTER → 2018-05-09 | Outpatient (CLI) | payer MEDICARE, MEDICAID ==
[~2018-05-09] MED LIST changes: +ACET325T14 PO; +AMPI3VIA IV; +ASPI-496 PO; +FURO40TA6 PO; +LEVO112T4 PO; +METF500T17 PO; -METF500T5 PO; +METO-99 PO; +POTA20TA14 PO; +POTA20TA89 PO; +RIVA20TA PO; +TAMS0.4C2 PO
== END | disposition home or self-care (01) ==
LOC: WOUND 09:53
PROVIDERS: ATTEND Family Medicine
DX: E11.622 Type 2 diabetes mellitus with other skin ulcer (principal); L97.212 Non-pressure chronic ulcer of right calf with fat layer exposed; I87.2 Venous insufficiency (chronic) (peripheral); E11.21 Type 2 diabetes mellitus with diabetic nephropathy; E66.01 Morbid (severe) obesity due to excess calories; I48.2 Chronic atrial fibrillation; I25.10 Atherosclerotic heart disease of native coronary artery without angina pectoris; E78.5 Hyperlipidemia, unspecified; E03.9 Hypothyroidism, unspecified; E11.22 Type 2 diabetes mellitus with diabetic chronic kidney disease; I13.0 Hypertensive heart and chronic kidney disease with heart failure and stage 1 through stage 4 chronic kidney disease, or unspecified chronic kidney disease; N18.3 Chronic kidney disease, stage 3 (moderate); I50.32 Chronic diastolic (congestive) heart failure; M17.0 Bilateral primary osteoarthritis of knee; Z79.01 Long term (current) use of anticoagulants; G47.33 Obstructive sleep apnea (adult) (pediatric); G89.29 Other chronic pain; Z79.899 Other long term (current) drug therapy; I25.2 Old myocardial infarction; Z87.891 Personal history of nicotine dependence; Z68.41 Body mass index [BMI] 40.0-44.9, adult; Z94.0 Kidney transplant status
CPT/HCPCS: 11042; 29581; 99215

== ENCOUNTER 2018-05-12 16:41 | Observation (INO) | payer MEDICARE, MEDICAID ==
[~2018-05-12] VITALS: Ht 177.8 cm; Wt 143.9 kg
[2018-05-12 19:43] LABS: BASOPHILS # (AUTO) 0.05 x10^3/uL (0-0.1); BASOPHILS % (AUTO) 1 % (0-1); EOSINOPHILS # (AUTO) 0.27 x10^3/uL (0-0.4); EOSINOPHILS % (AUTO) 4 % (1-7); LYMPHOCYTES # (AUTO) 1.73 x10^3/uL (1-3.4); LYMPHOCYTES % (AUTO) 24 % (22-44); MD NO; MEAN CORPUSCULAR HEMOGLOBIN 28.5 pg (27.5-34.5); MEAN CORPUSCULAR HGB CONC 33.1 g/dL (33.2-36.2); MEAN CORPUSCULAR VOLUME 86.3 fL (81-97); MONOCYTES # (AUTO) 0.68 x10^3/uL (0.2-0.8); MONOCYTES % (AUTO) 9 % (2-9); NEUTROPHILS # (AUTO) 4.47 x10^3/uL (1.8-6.8); NEUTROPHILS % (AUTO) 62 % (42-75); PLATELET COUNT 307 x10^3/uL (130-400); RED BLOOD COUNT 4.83 x10^6/uL (4.38-5.82); RED CELL DISTRIBUTION WIDTH 16.9 % (9.4-14.8)
[2018-05-12 19:45] LABS: ALBUMIN 3.1 g/dL (3.4-5.0); ANION GAP 5 mmol/L (5-15); CALCIUM 8.3 mg/dL (8.5-10.1); CHLORIDE 105 mmol/L (98-107); CREATININE 1.16 mg/dL (0.7-1.3)
[2018-05-12 19:49] LABS: TROPONIN I 0.029 ng/mL (0.000-0.045)
[2018-05-12] MEDS ORDERED: SODIUM CHLORIDE FLUSH 10ML SYR IVF PRN (20:00)
[2018-05-12 20:20] VITALS: BP 138/85
[2018-05-12] MEDS ORDERED: ONDANSETRON ODT 4 MG PO PRN (22:30)
[2018-05-12] MEDS ORDERED: PROMETHAZINE 25 MG/ML, 1ML IM PRN (22:30)
[2018-05-12] MEDS ORDERED: LABETALOL 5MG/ML, 20ML IVPush PRN (22:30)
[2018-05-12] MEDS ORDERED: hydrALAzine 20 MG/ML, 1ML IVPush PRN (22:30)
[2018-05-12] MEDS ORDERED: ONDANSETRON 2MG/ML, 2ML IVPush PRN (22:30)
[2018-05-12] MEDS ORDERED: DOCUSATE 100 MG CAPSULE PO PRN (22:30)
[2018-05-12] MEDS ORDERED: POLYETHYLENE GLYCOL 17 GM PACKET PO PRN (22:30)
[2018-05-12] MEDS ORDERED: BISACODYL 10 MG SUPP PR PRN (22:30)
[2018-05-12] MEDS ORDERED: ACETAMINOPHEN 325 MG TABLET PO PRN (22:30)
[2018-05-12] MEDS: RIVAROXABAN 20 MG TABLET PO SCH (22:39)
[2018-05-12] MEDS: METOPROLOL TARTRATE 100 MG TABLET PO SCH (22:39)
[2018-05-12] MEDS: metFORMIN 500 MG TABLET PO SCH (22:39)
[2018-05-12] MEDS: ATORVASTATIN 10 MG TABLET PO SCH (22:39)
[2018-05-12] MEDS: TAMSULOSIN 0.4 MG CAP.ER.24H PO SCH (22:39)
[2018-05-12 23:06] LABS: FREE T4 (FREE THYROXINE) 1.52 ng/dL (0.76-1.46); THYROID STIMULATING HORMONE 2.04 mIU/L (0.358-3.740)
[2018-05-12 23:09] LABS: HEMOGLOBIN A1C 6.3 % (4.2-6.3)
[2018-05-13 00:01] LABS: CULTURE INDICATED? NO; MICROSCOPIC NOT IND
[2018-05-13 04:03] VITALS: BP 141/82
[2018-05-13 04:51] LABS: BASOPHILS # (AUTO) 0.04 x10^3/uL (0-0.1); BASOPHILS % (AUTO) 1 % (0-1); EOSINOPHILS # (AUTO) 0.23 x10^3/uL (0-0.4); EOSINOPHILS % (AUTO) 3 % (1-7); LYMPHOCYTES # (AUTO) 1.32 x10^3/uL (1-3.4); LYMPHOCYTES % (AUTO) 17 % (22-44); MD NO; MEAN CORPUSCULAR HEMOGLOBIN 28.3 pg (27.5-34.5); MEAN CORPUSCULAR VOLUME 85.6 fL (81-97); MEAN PLATELET VOLUME 8.9 fL (7.4-10.4); MONOCYTES # (AUTO) 0.82 x10^3/uL (0.2-0.8); MONOCYTES % (AUTO) 11 % (2-9); NEUTROPHILS # (AUTO) 5.21 x10^3/uL (1.8-6.8); NEUTROPHILS % (AUTO) 68 % (42-75); PLATELET COUNT 301 x10^3/uL (130-400); RED BLOOD COUNT 4.77 x10^6/uL (4.38-5.82); RED CELL DISTRIBUTION WIDTH 16.9 % (9.4-14.8)
[2018-05-13 04:56] LABS: CALCIUM 8.3 mg/dL (8.5-10.1); CHLORIDE 103 mmol/L (98-107)
[2018-05-13 05:02] LABS: ALANINE AMINOTRANSFERASE 22 U/L (12-78); ALKALINE PHOSPHATASE 127 U/L (45-117); ANION GAP 7 mmol/L (5-15); BILIRUBIN,TOTAL 0.9 mg/dL (0.2-1.0); CHOLESTEROL, TOTAL 88 mg/dL (140-239); CREATININE 1.07 mg/dL (0.7-1.3); HDL CHOL % 51 % (26-37); HDL CHOLESTEROL (DIRECT) 45 mg/dL (40-60); LDL CHOLESTEROL,CALCULATED 29 mg/dL (54-169); LDL/HDL RATIO 0.6 (0.5-3.0); TOTAL PROTEIN 7.2 g/dL (6.4-8.2); TRIGLYCERIDES 70 mg/dL (50-200); VLDL CHOLESTEROL 14 mg/dL (0-25)
[2018-05-13] MEDS: LEVOTHYROXINE 112 MCG TABLET PO SCH (05:22)
[2018-05-13 07:24] VITALS: BP 133/84
[2018-05-13] MEDS: POTASSIUM CHLORIDE 20 MEQ TAB.ER.PRT PO SCH (09:53)
[2018-05-13] MEDS: ASPIRIN 81 MG TABLET EC PO SCH (09:53)
[2018-05-13] MEDS: METOPROLOL TARTRATE 100 MG TABLET PO SCH ×2 (09:54→21:08)
[2018-05-13 12:44] VITALS: BP 110/72
[2018-05-13 20:17] VITALS: BP 117/78
[2018-05-13] MEDS: TAMSULOSIN 0.4 MG CAP.ER.24H PO SCH (21:08)
[2018-05-13] MEDS: ATORVASTATIN 10 MG TABLET PO SCH (21:08)
[2018-05-13] MEDS: RIVAROXABAN 20 MG TABLET PO SCH (21:08)
[2018-05-13] MEDS: metFORMIN 500 MG TABLET PO SCH (21:08)
[2018-05-14] MEDS: GABAPENTIN 300 MG CAPSULE PO PRN ×2 (00:25→12:40)
[2018-05-14 01:45] VITALS: BP 119/78
[2018-05-14] MEDS: LEVOTHYROXINE 112 MCG TABLET PO SCH (05:41)
[2018-05-14 06:46] VITALS: BP 107/73
[2018-05-14] MEDS: ASPIRIN 81 MG TABLET EC PO SCH (07:44)
[2018-05-14] MEDS: METOPROLOL TARTRATE 100 MG TABLET PO SCH ×2 (07:45→20:52)
[2018-05-14] MEDS: POTASSIUM CHLORIDE 20 MEQ TAB.ER.PRT PO SCH (07:45)
[2018-05-14 14:01] VITALS: BP 110/69
[2018-05-14 19:11] VITALS: BP 127/77
[2018-05-14] MEDS: FUROSEMIDE 40 MG TABLET PO SCH (19:20)
[2018-05-14] MEDS: TAMSULOSIN 0.4 MG CAP.ER.24H PO SCH (20:52)
[2018-05-14] MEDS: metFORMIN 500 MG TABLET PO SCH (20:52)
[2018-05-14] MEDS: ATORVASTATIN 10 MG TABLET PO SCH (20:52)
[2018-05-14] MEDS: RIVAROXABAN 20 MG TABLET PO SCH (20:52)
[2018-05-15] MEDS: GABAPENTIN 300 MG CAPSULE PO PRN (01:40)
[2018-05-15 03:16] VITALS: BP 115/78
[2018-05-15] MEDS: LEVOTHYROXINE 112 MCG TABLET PO SCH (05:34)
[2018-05-15 07:42] VITALS: BP 119/78
[2018-05-15 08:35] VITALS: BP 115/74
[2018-05-15] MEDS: POTASSIUM CHLORIDE 20 MEQ TAB.ER.PRT PO SCH (08:36)
[2018-05-15] MEDS: ASPIRIN 81 MG TABLET EC PO SCH (08:37)
[2018-05-15] MEDS: METOPROLOL TARTRATE 100 MG TABLET PO SCH (08:37)
[2018-05-15] MEDS: FUROSEMIDE 40 MG TABLET PO SCH (08:37)
[2018-05-15 13:27] VITALS: BP 114/78
== END 2018-05-15 17:22 ==
LOC: ED 19:28 → INTOOBSV 19:50 → EDIP 19:50 → 3NE 20:40
PROVIDERS: ADMIT Internal Medicine; ATTEND Internal Medicine
DX: M17.0 Bilateral primary osteoarthritis of knee (principal); E43 Unspecified severe protein-calorie malnutrition; I50.32 Chronic diastolic (congestive) heart failure; D68.69 Other thrombophilia; R62.7 Adult failure to thrive; I11.0 Hypertensive heart disease with heart failure; I48.91 Unspecified atrial fibrillation; E03.9 Hypothyroidism, unspecified; N40.0 Benign prostatic hyperplasia without lower urinary tract symptoms; E11.9 Type 2 diabetes mellitus without complications; E66.01 Morbid (severe) obesity due to excess calories; E78.5 Hyperlipidemia, unspecified; G47.33 Obstructive sleep apnea (adult) (pediatric); H35.30 Unspecified macular degeneration; I25.10 Atherosclerotic heart disease of native coronary artery without angina pectoris; G89.29 Other chronic pain; I87.2 Venous insufficiency (chronic) (peripheral); I87.8 Other specified disorders of veins; W18.30XA Fall on same level, unspecified, initial encounter; Z79.01 Long term (current) use of anticoagulants; Z82.49 Family history of ischemic heart disease and other diseases of the circulatory system; Z82.5 Family history of asthma and other chronic lower respiratory diseases; Z79.899 Other long term (current) drug therapy
CPT/HCPCS: 36415; 80048; 80053; 80061; 81003; 82040; 83036; 83880; 84439; 84443; 84484; 85025; 99285; G0378

== ENCOUNTER 2018-06-12 01:06 | Inpatient (IN) | payer MEDICARE, MEDICAID ==
[~2018-06-12] VITALS: Ht 177.8 cm; Wt 140.5 kg
[2018-06-12] VITALS (7 sets, daily range): BP systolic 108–160; BP diastolic 61–89
[2018-06-12] MEDS ORDERED: ALBUTEROL/IPRATROPIUM 2.5MG/0.5MG, 3 ML NPPB ONE (01:30)
[2018-06-12] MEDS ORDERED: methylPREDNISolone SOD SUCC 125 MG/2 ML IVP ONE (01:30)
[2018-06-12] MEDS ORDERED: SODIUM CHLORIDE FLUSH 10ML SYR IVF ONE (01:30)
[2018-06-12] MEDS ORDERED: methylPREDNISolone SOD SUCC 125 MG/2 ML ONE (01:33)
[2018-06-12 01:45] LABS: BASOPHILS # (AUTO) 0.06 x10^3/uL (0-0.1); BASOPHILS % (AUTO) 1 % (0-1); EOSINOPHILS % (AUTO) 3 % (1-7); LYMPHOCYTES # (AUTO) 1.26 x10^3/uL (1-3.4); LYMPHOCYTES % (AUTO) 19 % (22-44); MD NO; MEAN CORPUSCULAR HEMOGLOBIN 27.5 pg (27.5-34.5); MEAN CORPUSCULAR HGB CONC 32.4 g/dL (33.2-36.2); MEAN CORPUSCULAR VOLUME 84.9 fL (81-97); MEAN PLATELET VOLUME 9.1 fL (7.4-10.4); MONOCYTES % (AUTO) 9 % (2-9); NEUTROPHILS # (AUTO) 4.39 x10^3/uL (1.8-6.8); NEUTROPHILS % (AUTO) 67 % (42-75); PLATELET COUNT 229 x10^3/uL (130-400); RED BLOOD COUNT 4.78 x10^6/uL (4.38-5.82); RED CELL DISTRIBUTION WIDTH 17.3 % (9.4-14.8)
[2018-06-12 01:58] LABS: ALANINE AMINOTRANSFERASE 22 U/L (12-78); ALBUMIN 3.2 g/dL (3.4-5.0); ANION GAP 6 mmol/L (5-15); CALCIUM 8.4 mg/dL (8.5-10.1); CHLORIDE 105 mmol/L (98-107); CREATININE 1.01 mg/dL (0.7-1.3)
[2018-06-12 02:02] LABS: ALKALINE PHOSPHATASE 162 U/L (45-117); BILIRUBIN,TOTAL 0.8 mg/dL (0.2-1.0); TOTAL PROTEIN 7.5 g/dL (6.4-8.2); TROPONIN I 0.015 ng/mL (0.000-0.045)
[2018-06-12] MEDS ORDERED: TRAM50TA2 PO (02:13)
[2018-06-12] MEDS ORDERED: ACET325C5 PO (02:14)
[2018-06-12] MEDS ORDERED: FUROSEMIDE 20 MG/2 ML IV ONE (02:30)
[2018-06-12] MEDS ORDERED: SODIUM CHLORIDE FLUSH 10ML SYR IVF PRN (02:30)
[2018-06-12] MEDS ORDERED: FUROSEMIDE 20 MG/2 ML ONE (03:17)
[2018-06-12] MEDS ORDERED: hydrALAzine 20 MG/ML, 1ML IVPush PRN (03:30)
[2018-06-12] MEDS ORDERED: DOCUSATE 100 MG CAPSULE PO PRN (03:30)
[2018-06-12] MEDS ORDERED: PROMETHAZINE 25 MG/ML, 1ML IM PRN (03:30)
[2018-06-12] MEDS ORDERED: LABETALOL 5MG/ML, 20ML IVPush PRN (03:30)
[2018-06-12] MEDS ORDERED: FUROSEMIDE 20 MG/2 ML IV SCH (03:30)
[2018-06-12] MEDS ORDERED: ONDANSETRON 2MG/ML, 2ML IVPush PRN (03:30)
[2018-06-12] MEDS ORDERED: ONDANSETRON ODT 4 MG PO PRN (03:30)
[2018-06-12] MEDS ORDERED: BISACODYL 10 MG SUPP PR PRN (03:30)
[2018-06-12] MEDS ORDERED: POLYETHYLENE GLYCOL 17 GM PACKET PO PRN (03:30)
[2018-06-12 03:51] LABS: FREE T4 (FREE THYROXINE) 1.51 ng/dL (0.76-1.46); THYROID STIMULATING HORMONE 2.69 mIU/L (0.358-3.740)
[2018-06-12 03:54] LABS: HEMOGLOBIN A1C 6.5 % (4.2-6.3)
[2018-06-12 04:42] LABS: MICROSCOPIC INDICATED
[2018-06-12 04:58] LABS: CULTURE INDICATED? NO
[2018-06-12] MEDS: POTASSIUM CHLORIDE 20 MEQ TAB.ER.PRT PO SCH (08:43)
[2018-06-12] MEDS: METOPROLOL TARTRATE 100 MG TABLET PO SCH ×2 (08:43→21:29)
[2018-06-12] MEDS: MULTIVITAMIN 1 TABLET PO SCH (08:43)
[2018-06-12] MEDS: LEVOTHYROXINE 112 MCG TABLET PO SCH (08:43)
[2018-06-12] MEDS: ACETAMINOPHEN 325 MG TABLET PO SCH (08:44)
[2018-06-12] MEDS ORDERED: TEMPLATE NON-FORMULARY MED. (Potassium Chloride** 20 MEQ) PO SCH (09:00)
[2018-06-12] MEDS ORDERED: FUROSEMIDE 40 MG/4 ML IV SCH (09:00)
[2018-06-12] MEDS: FUROSEMIDE 40 MG TABLET PO SCH (17:03)
[2018-06-12] MEDS: ATORVASTATIN 10 MG TABLET PO SCH (21:29)
[2018-06-12] MEDS: RIVAROXABAN 20 MG TABLET PO SCH (21:29)
[2018-06-12] MEDS: metFORMIN 500 MG TABLET PO SCH (21:29)
[2018-06-12] MEDS: TAMSULOSIN 0.4 MG CAP.ER.24H PO SCH (21:29)
[2018-06-13 00:32] VITALS: BP 116/75
[2018-06-13 06:22] LABS: BASOPHILS # (AUTO) 0.05 x10^3/uL (0-0.1); BASOPHILS % (AUTO) 1 % (0-1); EOSINOPHILS # (AUTO) 0.02 x10^3/uL (0-0.4); EOSINOPHILS % (AUTO) 0 % (1-7); LYMPHOCYTES # (AUTO) 1.37 x10^3/uL (1-3.4); LYMPHOCYTES % (AUTO) 15 % (22-44); MD NO; MEAN CORPUSCULAR HEMOGLOBIN 27.9 pg (27.5-34.5); MEAN CORPUSCULAR HGB CONC 32.6 g/dL (33.2-36.2); MEAN CORPUSCULAR VOLUME 85.4 fL (81-97); MEAN PLATELET VOLUME 9.4 fL (7.4-10.4); MONOCYTES # (AUTO) 0.86 x10^3/uL (0.2-0.8); MONOCYTES % (AUTO) 9 % (2-9); NEUTROPHILS % (AUTO) 75 % (42-75); PLATELET COUNT 225 x10^3/uL (130-400); RED BLOOD COUNT 4.46 x10^6/uL (4.38-5.82); RED CELL DISTRIBUTION WIDTH 17.4 % (9.4-14.8)
[2018-06-13 06:35] LABS: ALANINE AMINOTRANSFERASE 23 U/L (12-78); ANION GAP 8 mmol/L (5-15); CALCIUM 8.5 mg/dL (8.5-10.1); CHLORIDE 104 mmol/L (98-107)
[2018-06-13 06:37] LABS: ALKALINE PHOSPHATASE 147 U/L (45-117); BILIRUBIN,TOTAL 0.6 mg/dL (0.2-1.0); CHOL/HDL RATIO 1.8; CHOLESTEROL, TOTAL 77 mg/dL (140-239); CREATININE 1.11 mg/dL (0.7-1.3); HDL CHOL % 57 % (26-37); HDL CHOLESTEROL (DIRECT) 44 mg/dL (40-60); LDL CHOLESTEROL,CALCULATED 24 mg/dL (54-169); LDL/HDL RATIO 0.5 (0.5-3.0); TRIGLYCERIDES 44 mg/dL (50-200); VLDL CHOLESTEROL 9 mg/dL (0-25)
[2018-06-13 07:16] VITALS: BP 127/67
[2018-06-13] MEDS: POTASSIUM CHLORIDE 20 MEQ TAB.ER.PRT PO SCH (09:45)
[2018-06-13] MEDS: METOPROLOL TARTRATE 100 MG TABLET PO SCH (09:45)
[2018-06-13] MEDS: ACETAMINOPHEN 325 MG TABLET PO SCH (09:45)
[2018-06-13] MEDS: FUROSEMIDE 40 MG TABLET PO SCH ×2 (09:45→18:24)
[2018-06-13] MEDS: MULTIVITAMIN 1 TABLET PO SCH (09:46)
[2018-06-13] MEDS: LEVOTHYROXINE 112 MCG TABLET PO SCH (09:46)
[2018-06-13 14:11] VITALS: BP 112/62
[2018-06-13] MEDS: METOPROLOL TARTRATE 50 MG TABLET PO SCH ×2 (18:30→22:06)
[2018-06-13 19:22] VITALS: BP 135/79
[2018-06-13] MEDS: RIVAROXABAN 20 MG TABLET PO SCH (22:05)
[2018-06-13] MEDS: metFORMIN 500 MG TABLET PO SCH (22:05)
[2018-06-13] MEDS: TAMSULOSIN 0.4 MG CAP.ER.24H PO SCH (22:05)
[2018-06-13] MEDS: ATORVASTATIN 10 MG TABLET PO SCH (22:05)
[2018-06-14 02:57] VITALS: BP 131/82
[2018-06-14 05:04] LABS: ANION GAP 10 mmol/L (5-15); CALCIUM 8.1 mg/dL (8.5-10.1); CHLORIDE 103 mmol/L (98-107)
[2018-06-14] MEDS: LEVOTHYROXINE 112 MCG TABLET PO SCH (05:45)
[2018-06-14] MEDS ORDERED: FUROSEMIDE 40 MG/4 ML IV ONE (06:30)
[2018-06-14 08:10] VITALS: BP 139/81
[2018-06-14] MEDS: POTASSIUM CHLORIDE 20 MEQ TAB.ER.PRT PO SCH (08:44)
[2018-06-14] MEDS: MULTIVITAMIN 1 TABLET PO SCH (08:44)
[2018-06-14] MEDS: METOPROLOL TARTRATE 50 MG TABLET PO SCH ×2 (08:44→20:50)
[2018-06-14] MEDS: FUROSEMIDE 40 MG TABLET PO SCH ×2 (08:45→17:13)
[2018-06-14] MEDS: LOSARTAN 25MG TABLET PO SCH (08:45)
[2018-06-14] MEDS: ACETAMINOPHEN 325 MG TABLET PO SCH (08:46)
[2018-06-14 13:30] VITALS: BP 113/75
[2018-06-14 20:18] VITALS: BP 120/77
[2018-06-14] MEDS: metFORMIN 500 MG TABLET PO SCH (20:49)
[2018-06-14] MEDS: ATORVASTATIN 10 MG TABLET PO SCH (20:49)
[2018-06-14] MEDS: RIVAROXABAN 20 MG TABLET PO SCH (20:50)
[2018-06-14] MEDS: TAMSULOSIN 0.4 MG CAP.ER.24H PO SCH (20:50)
[2018-06-15 03:02] VITALS: BP 137/78
[2018-06-15 06:00] LABS: ANION GAP 8 mmol/L (5-15); CALCIUM 8.3 mg/dL (8.5-10.1); CHLORIDE 102 mmol/L (98-107); CREATININE 0.96 mg/dL (0.7-1.3)
[2018-06-15] MEDS: LEVOTHYROXINE 112 MCG TABLET PO SCH (06:22)
[2018-06-15 07:35] VITALS: BP 135/73
[2018-06-15] MEDS: POTASSIUM CHLORIDE 20 MEQ TAB.ER.PRT PO SCH (08:35)
[2018-06-15] MEDS: MULTIVITAMIN 1 TABLET PO SCH (08:35)
[2018-06-15] MEDS: LOSARTAN 25MG TABLET PO SCH (08:35)
[2018-06-15] MEDS: FUROSEMIDE 40 MG TABLET PO SCH ×2 (08:35→16:11)
[2018-06-15] MEDS: ACETAMINOPHEN 325 MG TABLET PO SCH (08:35)
[2018-06-15] MEDS: METOPROLOL TARTRATE 50 MG TABLET PO SCH ×2 (08:35→19:48)
[2018-06-15 13:38] VITALS: BP 110/62
[2018-06-15 19:03] VITALS: BP 124/76
[2018-06-15] MEDS: TAMSULOSIN 0.4 MG CAP.ER.24H PO SCH (19:48)
[2018-06-15] MEDS: RIVAROXABAN 20 MG TABLET PO SCH (19:48)
[2018-06-15] MEDS: metFORMIN 500 MG TABLET PO SCH (19:48)
[2018-06-15] MEDS: ATORVASTATIN 10 MG TABLET PO SCH (19:48)
[2018-06-16 01:28] VITALS: BP 129/77
[2018-06-16 06:07] LABS: CHLORIDE 101 mmol/L (98-107)
[2018-06-16 06:13] LABS: ALBUMIN 3.3 g/dL (3.4-5.0); ANION GAP 9 mmol/L (5-15); CALCIUM 8.6 mg/dL (8.5-10.1); CREATININE 0.95 mg/dL (0.7-1.3)
[2018-06-16] MEDS: LEVOTHYROXINE 112 MCG TABLET PO SCH (06:20)
[2018-06-16 06:54] VITALS: BP 133/85
[2018-06-16] MEDS: ACETAMINOPHEN 325 MG TABLET PO SCH (07:54)
[2018-06-16] MEDS ORDERED: LOSA25TA2 PO (08:49)
[2018-06-16] MEDS ORDERED: METO50TA82 PO (08:49)
[2018-06-16] MEDS: FUROSEMIDE 40 MG TABLET PO SCH (08:50)
[2018-06-16] MEDS: METOPROLOL TARTRATE 50 MG TABLET PO SCH (08:50)
[2018-06-16] MEDS: POTASSIUM CHLORIDE 20 MEQ TAB.ER.PRT PO SCH (08:50)
[2018-06-16] MEDS: MULTIVITAMIN 1 TABLET PO SCH (08:51)
[2018-06-16] MEDS: LOSARTAN 25MG TABLET PO SCH (08:51)
== END 2018-06-16 14:00 | disposition home health service (06) | DRG 291 ==
LOC: ED 01:23 → EDIP 02:29 → 5SO 03:39 → 4EST 09:53
PROVIDERS: ADMIT Internal Medicine; ATTEND Internal Medicine
DX: I11.0 Hypertensive heart disease with heart failure (principal); E43 Unspecified severe protein-calorie malnutrition; D68.69 Other thrombophilia; Z68.41 Body mass index [BMI] 40.0-44.9, adult; I50.33 Acute on chronic diastolic (congestive) heart failure; I25.10 Atherosclerotic heart disease of native coronary artery without angina pectoris; I27.20 Pulmonary hypertension, unspecified; G47.33 Obstructive sleep apnea (adult) (pediatric); I48.0 Paroxysmal atrial fibrillation; E78.5 Hyperlipidemia, unspecified; E66.01 Morbid (severe) obesity due to excess calories; I27.29 Other secondary pulmonary hypertension; E11.9 Type 2 diabetes mellitus without complications; M17.0 Bilateral primary osteoarthritis of knee; N40.0 Benign prostatic hyperplasia without lower urinary tract symptoms; F17.210 Nicotine dependence, cigarettes, uncomplicated; E03.9 Hypothyroidism, unspecified; I48.2 Chronic atrial fibrillation; I87.2 Venous insufficiency (chronic) (peripheral); I87.8 Other specified disorders of veins; G89.29 Other chronic pain; Z82.5 Family history of asthma and other chronic lower respiratory diseases; Z91.19 Patient's noncompliance with other medical treatment and regimen; Z91.81 History of falling; Z82.49 Family history of ischemic heart disease and other diseases of the circulatory system; Z79.01 Long term (current) use of anticoagulants; Z90.89 Acquired absence of other organs; Z79.899 Other long term (current) drug therapy
CPT/HCPCS: 36415; 36600; 71045; 80048; 80053; 80061; 81001; 82040; 82803; 83036; 83735; 83880; 84439; 84443; 84484; 85025; 90656; 93005; 93306; 94640; 96374; G0378; J1940; J7620; J2930

== ENCOUNTER → 2019-01-05 | Outpatient (CLI) | payer MEDICARE, MEDICAID ==
[~2019-01-05] MED LIST changes: +ACET325C5 PO; -ASPI-621 PO; +ASPI81TA45 PO; +ATOR20TA37 PO; -ATOR20TA9 PO; +LOSA25TA2 PO; +REGADENOSON 0.4 MG/5 ML SYRINGE ONE; -RIVA10TA PO; +RIVA10TA2 PO; +TRAM50TA2 PO; -TRIA15CR3 TD; +TRIA15CR61 TD; +WARF2.5T32 PO; -WARF2.5T73 PO
== END | disposition home or self-care (01) ==
LOC: RAD 11:32
PROVIDERS: ATTEND Nurse Practitioner Family
DX: I48.2 Chronic atrial fibrillation (principal); I44.7 Left bundle-branch block, unspecified; I42.9 Cardiomyopathy, unspecified; I10 Essential (primary) hypertension
CPT/HCPCS: 78452; 93017; A9502; J2785

== ENCOUNTER 2019-01-28 14:32 | Observation (INO) | payer MEDICARE, MEDICAID ==
[~2019-01-28] VITALS: Ht 180.3 cm; Wt 145.8 kg
[~2019-01-28 14:32] MED LIST changes: -REGADENOSON 0.4 MG/5 ML SYRINGE ONE
--- NOTE | 2019-01-28 14:35 | NUR ---
md is at the bedside to assess
--- NOTE | 2019-01-28 14:35 | NUR ---
md is at the bedside to assess
--- NOTE | 2019-01-28 14:43 | NUR ---
PT TO XR W TECH
--- NOTE | 2019-01-28 14:59 | NUR ---
REVIEW OF CHART, ASSUME CARE OF PT AT THIS TIME.
--- NOTE | 2019-01-28 15:30 | NUR ---
DAISY (RN) IS ASSUMING CARE OF THIS PT AT THIS TIME. SBAR REPORT WAS EXCHANGED AT THE BEDSIDE.
--- NOTE | 2019-01-28 15:35 | NUR ---
RESULTS BACK, PT FOR RECHECK.
[2019-01-28] MEDS ORDERED: SODIUM CHLORIDE FLUSH 10ML SYR IVF ONE ×2 (16:00→17:30)
--- NOTE | 2019-01-28 16:01 | NUR ---
ADD ON LABS AND CT W/O.
[2019-01-28 16:05] LABS: BASOPHILS # (AUTO) 0.05 x10^3/uL (0-0.1); BASOPHILS % (AUTO) 1 % (0-1); EOSINOPHILS # (AUTO) 0.21 x10^3/uL (0-0.4); EOSINOPHILS % (AUTO) 3 % (1-7); LYMPHOCYTES # (AUTO) 1.14 x10^3/uL (1-3.4); LYMPHOCYTES % (AUTO) 17 % (22-44); MD NO; MEAN CORPUSCULAR HGB CONC 32.3 g/dL (33.2-36.2); MEAN CORPUSCULAR VOLUME 86.7 fL (81-97); MONOCYTES # (AUTO) 0.52 x10^3/uL (0.2-0.8); MONOCYTES % (AUTO) 8 % (2-9); NEUTROPHILS # (AUTO) 4.87 x10^3/uL (1.8-6.8); NEUTROPHILS % (AUTO) 72 % (42-75); PLATELET COUNT 252 x10^3/uL (130-400); RED BLOOD COUNT 4.23 x10^6/uL (4.38-5.82); RED CELL DISTRIBUTION WIDTH 17.5 % (9.4-14.8)
[2019-01-28 16:16] LABS: ALANINE AMINOTRANSFERASE 19 U/L (12-78); ALBUMIN 3.3 g/dL (3.4-5.0); ANION GAP 6 mmol/L (5-15); CALCIUM 8.5 mg/dL (8.5-10.1); CHLORIDE 105 mmol/L (98-107); CREATININE 1.26 mg/dL (0.7-1.3)
[2019-01-28 16:18] LABS: ALKALINE PHOSPHATASE 162 U/L (45-117); BILIRUBIN,TOTAL 0.5 mg/dL (0.2-1.0); TOTAL PROTEIN 6.8 g/dL (6.4-8.2)
--- NOTE | 2019-01-28 16:41 | NUR ---
ALL RESULTS BACK, PT FOR RECHECK.
--- NOTE | 2019-01-28 17:31 | NUR ---
LEONARDOH IN TO SEE PT. IV STARTED BY [employer] STUDENT. MED REC COMPLETED.
--- NOTE | 2019-01-28 17:52 | NUR ---
REPORT TO HA CHANEY. PT READY FOR TRANSPORT.
[2019-01-28] MEDS ORDERED: ACETAMINOPHEN 325 MG TABLET PO PRN (18:00)
[2019-01-28] MEDS ORDERED: morphine SULFATE 10 MG/ML, 1ML IVPush PRN (18:00)
[2019-01-28] MEDS ORDERED: DEXTROSE 50%, 50ML SYRINGE IVPush PRN (18:00)
[2019-01-28] MEDS ORDERED: LIDODERM 5% PATCH TD PRN (18:00)
[2019-01-28] MEDS ORDERED: hydrALAzine 20 MG/ML, 1ML IVPush PRN (18:00)
[2019-01-28] MEDS ORDERED: GLUCAGON 1 MG IM PRN (18:00)
[2019-01-28] MEDS ORDERED: DEXTROSE 4 GM TAB.CHEW PO PRN (18:00)
[2019-01-28] MEDS ORDERED: POLYETHYLENE GLYCOL 17 GM PACKET PO PRN (18:00)
[2019-01-28] MEDS ORDERED: ONDANSETRON 2MG/ML, 2ML IVPush PRN (18:00)
[2019-01-28 18:19] VITALS: BP 145/86
[2019-01-28] MEDS: RIVAROXABAN 20 MG TABLET PO SCH (18:34)
[2019-01-28] MEDS: OXYcodone IR 5MG TABLET PO PRN (18:34)
[2019-01-28 20:36] VITALS: BP 145/74
[2019-01-28] MEDS ORDERED: GABAPENTIN 300 MG CAPSULE PO PRN (21:00)
[2019-01-28] MEDS: ATORVASTATIN 10 MG TABLET PO SCH (21:08)
[2019-01-28] MEDS: FUROSEMIDE 40 MG TABLET PO SCH (21:08)
[2019-01-28] MEDS: METOPROLOL TARTRATE 50 MG TABLET PO SCH (21:09)
[2019-01-28] MEDS: INSULIN LISPRO 100 UNITS/ML, PEN SQ-INSULIN SCH (21:09)
[2019-01-28] MEDS: SODIUM CHLORIDE FLUSH 10ML SYR IVF SCH (21:09)
[2019-01-28] MEDS: TAMSULOSIN 0.4 MG CAP.ER.24H PO SCH (21:09)
[2019-01-29] MEDS: OXYcodone IR 5MG TABLET PO PRN ×5 (01:10→21:46)
[2019-01-29 02:08] VITALS: BP 131/61
[2019-01-29 05:38] LABS: BASOPHILS # (AUTO) 0.03 x10^3/uL (0-0.1); BASOPHILS % (AUTO) 1 % (0-1); EOSINOPHILS # (AUTO) 0.22 x10^3/uL (0-0.4); EOSINOPHILS % (AUTO) 4 % (1-7); LYMPHOCYTES # (AUTO) 1.34 x10^3/uL (1-3.4); LYMPHOCYTES % (AUTO) 22 % (22-44); MD NO; MEAN CORPUSCULAR HGB CONC 32.4 g/dL (33.2-36.2); MEAN CORPUSCULAR VOLUME 86.6 fL (81-97); MONOCYTES # (AUTO) 0.62 x10^3/uL (0.2-0.8); MONOCYTES % (AUTO) 10 % (2-9); NEUTROPHILS # (AUTO) 3.82 x10^3/uL (1.8-6.8); NEUTROPHILS % (AUTO) 63 % (42-75); PLATELET COUNT 239 x10^3/uL (130-400); RED BLOOD COUNT 4.32 x10^6/uL (4.38-5.82); RED CELL DISTRIBUTION WIDTH 17.4 % (9.4-14.8)
[2019-01-29 05:55] LABS: % IRON SATURATION 17 % (20-55); ANION GAP 8 mmol/L (5-15); CALCIUM 8.4 mg/dL (8.5-10.1); CHLORIDE 105 mmol/L (98-107); CREATININE 1.31 mg/dL (0.7-1.3); IRON LEVEL 53 mcg/dL (65-175); TOTAL IRON BINDING CAPACITY 316 mcg/dL (250-450)
[2019-01-29] MEDS: LEVOTHYROXINE 112 MCG TABLET PO SCH (06:33)
[2019-01-29] MEDS: INSULIN LISPRO 100 UNITS/ML, PEN SQ-INSULIN SCH ×4 (06:33→21:00)
[2019-01-29 07:50] VITALS: BP 122/74
[2019-01-29] MEDS: SENNA/DOCUSATE TABLET PO SCH (09:21)
[2019-01-29] MEDS: POTASSIUM CHLORIDE 10 MEQ TABLET.ER PO SCH (09:21)
[2019-01-29] MEDS: FUROSEMIDE 40 MG TABLET PO SCH ×2 (09:21→21:46)
[2019-01-29] MEDS: LOSARTAN 25MG TABLET PO SCH (09:21)
[2019-01-29] MEDS: METOPROLOL TARTRATE 50 MG TABLET PO SCH ×2 (09:21→21:46)
[2019-01-29] MEDS: SODIUM CHLORIDE FLUSH 10ML SYR IVF SCH ×2 (09:22→21:47)
[2019-01-29 12:35] VITALS: BP 159/45
[2019-01-29] MEDS: IRON SUCROSE COMPLEX 100MG/5ML IV SCH (12:51)
[2019-01-29] MEDS: RIVAROXABAN 20 MG TABLET PO SCH (17:00)
[2019-01-29 20:09] VITALS: BP 156/78
[2019-01-29] MEDS: ATORVASTATIN 10 MG TABLET PO SCH (21:46)
[2019-01-29] MEDS: TAMSULOSIN 0.4 MG CAP.ER.24H PO SCH (21:46)
[2019-01-30 01:15] VITALS: BP 142/76
[2019-01-30] MEDS: OXYcodone IR 5MG TABLET PO PRN ×3 (01:29→09:56)
[2019-01-30 05:38] LABS: MEAN CORPUSCULAR VOLUME 87.3 fL (81-97); MEAN PLATELET VOLUME 8.7 fL (7.4-10.4); PLATELET COUNT 243 x10^3/uL (130-400); RED BLOOD COUNT 4.47 x10^6/uL (4.38-5.82); RED CELL DISTRIBUTION WIDTH 17.4 % (9.4-14.8)
[2019-01-30 05:45] LABS: ANION GAP 6 mmol/L (5-15); CALCIUM 8.5 mg/dL (8.5-10.1); CHLORIDE 104 mmol/L (98-107); CREATININE 1.39 mg/dL (0.7-1.3)
[2019-01-30 05:56] LABS: BASOPHILS # (AUTO) 0.03 x10^3/uL (0-0.1); BASOPHILS % (AUTO) 0 % (0-1); EOSINOPHILS # (AUTO) 0.18 x10^3/uL (0-0.4); EOSINOPHILS % (AUTO) 2 % (1-7); LYMPHOCYTES # (AUTO) 1.23 x10^3/uL (1-3.4); LYMPHOCYTES % (AUTO) 12 % (22-44); MD SCAN; MONOCYTES # (AUTO) 1.53 x10^3/uL (0.2-0.8); MONOCYTES % (AUTO) 15 % (2-9); NEUTROPHILS # (AUTO) 7.02 x10^3/uL (1.8-6.8); NEUTROPHILS % (AUTO) 70 % (42-75)
[2019-01-30] MEDS: LEVOTHYROXINE 112 MCG TABLET PO SCH (06:15)
[2019-01-30] MEDS: INSULIN LISPRO 100 UNITS/ML, PEN SQ-INSULIN SCH ×3 (06:15→15:59)
[2019-01-30 09:16] VITALS: BP 145/75
[2019-01-30] MEDS: FUROSEMIDE 40 MG TABLET PO SCH (09:56)
[2019-01-30] MEDS: SENNA/DOCUSATE TABLET PO SCH (09:56)
[2019-01-30] MEDS: METOPROLOL TARTRATE 50 MG TABLET PO SCH (09:56)
[2019-01-30] MEDS: POTASSIUM CHLORIDE 10 MEQ TABLET.ER PO SCH (09:56)
[2019-01-30] MEDS: LOSARTAN 25MG TABLET PO SCH (09:56)
[2019-01-30] MEDS: SODIUM CHLORIDE FLUSH 10ML SYR IVF SCH (09:57)
[2019-01-30] MEDS: IRON SUCROSE COMPLEX 100MG/5ML IV SCH (13:18)
[2019-01-30 14:24] VITALS: BP 121/82
[2019-01-30] MEDS ORDERED: SENN-177 PO (14:50)
[2019-01-30] MEDS ORDERED: FERR-51 PO (14:50)
[2019-01-30] MEDS ORDERED: LIDO700A20 TD (14:50)
[2019-01-30] MEDS ORDERED: OXYC5TAB3 PO ×2 (14:50→16:22)
[2019-01-30 17:31] VITALS: BP 97/65
[2019-01-30] MEDS: RIVAROXABAN 20 MG TABLET PO SCH (17:33)
== END 2019-01-30 19:51 ==
LOC: ED 17:07 → INTOOBSV 17:13 → EDIP 17:13 → 4NOR 17:32
PROVIDERS: ADMIT Internal Medicine; ATTEND Internal Medicine
DX: S82.145A Nondisplaced bicondylar fracture of left tibia, initial encounter for closed fracture (principal); I13.0 Hypertensive heart and chronic kidney disease with heart failure and stage 1 through stage 4 chronic kidney disease, or unspecified chronic kidney disease; E11.22 Type 2 diabetes mellitus with diabetic chronic kidney disease; N18.2 Chronic kidney disease, stage 2 (mild); I50.32 Chronic diastolic (congestive) heart failure; I27.20 Pulmonary hypertension, unspecified; G47.33 Obstructive sleep apnea (adult) (pediatric); E66.01 Morbid (severe) obesity due to excess calories; L30.8 Other specified dermatitis; I25.10 Atherosclerotic heart disease of native coronary artery without angina pectoris; E03.9 Hypothyroidism, unspecified; N40.0 Benign prostatic hyperplasia without lower urinary tract symptoms; D64.9 Anemia, unspecified; Z79.84 Long term (current) use of oral hypoglycemic drugs; Z79.899 Other long term (current) drug therapy; W18.30XA Fall on same level, unspecified, initial encounter; Y93.89 Activity, other specified; Y92.89 Other specified places as the place of occurrence of the external cause
CPT/HCPCS: 36415; 73564; 73700; 80048; 80053; 82728; 82962; 83540; 83550; 85025; 96374; 96376; 97162; 99285; G0378; J1756